=== PATIENT | male | born 1945 | race Caucasian/White ===

== ENCOUNTER 2022-07-12 21:00 | Inpatient (IN) | payer BC, OTHER ==
[~2022-07-12] VITALS: Ht 190.5 cm; Wt 103.9 kg
[2022-07-12] MEDS ORDERED: IV NS 0.9% 1,000 ML BAG IV ONE (23:00)
[2022-07-12] MEDS ORDERED: PIPERACILLIN /TAZOBACTAM 3.375 G in IV D5W 50 ML IV ONE (23:00)
[2022-07-12] MEDS ORDERED: VANCOMYCIN 1 GM in IV D5W 250 ML IV ONE (23:00)
--- NOTE | 2022-07-12 23:19 | NUR ---
20G IV STARTED ON R AC. BLOOD COLLECTED SENT TO LAB
[2022-07-12] MEDS ORDERED: PIPERACI/TAZO 3.375GM/D5W 50ML PB IV ONE (23:21)
--- NOTE | 2022-07-12 23:23 | NUR ---
X-RAY AT BEDSIDE
[2022-07-12 23:30] LABS: BASOPHILS % (AUTO) 0.3 % (0.0-2.0); EOSINOPHILS % (AUTO) 1.8 % (0.0-6.0); HEMATOCRIT 43 % (39-51); HEMOGLOBIN 13.9 g/dL (13.5-17.5); LYMPHOCYTES # (AUTO) 0.8 K/uL (0.8-4.8); LYMPHOCYTES % (AUTO) 11.5 % (20.0-44.0); MEAN CORPUSCULAR HGB CONC 32 g/dl (31.0-36.0); MEAN CORPUSCULAR VOLUME 84 fL (80-96); MONOCYTES # (AUTO) 0.8 K/uL (0.1-1.30); MONOCYTES % (AUTO) 11.2 % (2.0-12.0); NEUTROPHILS # (AUTO) 5.3 K/uL (1.8-8.9); NEUTROPHILS % (AUTO) 75.2 % (43.0-81.0); PLATELET COUNT (AUTO) 273 K/uL (150-450); RED BLOOD CELL COUNT(AUTO) 5.14 MIL/uL (4.5-6.0)
[2022-07-12 23:44] LABS: ALANINE AMINOTRANSFERASE 19 U/L (12-78); ALBUMIN 3.4 g/dL (3.4-5.0); ALKALINE PHOSPHATASE 116 U/L (46-116); ASPARTATE AMINOTRANSFERASE 10 U/L (15-37); BILIRUBIN,DIRECT 0.1 mg/dL (0.0-0.2); BILIRUBIN,TOTAL 0.4 mg/dL (0.2-1.0); CALCIUM, SERUM 9.1 mg/dL (8.5-10.1); CARBON DIOXIDE 24 mmol/L (21-32); CHLORIDE 91 mmol/L (98-107); CREATININE 5.6 mg/dL (0.6-1.3); GLUCOSE 254 mg/dL (74-106); SODIUM SERUM 129 mmol/L (136-145)
--- NOTE | 2022-07-12 23:55 | NUR ---
COVID ANTIGEN COLLECTED SENT TO [facility]
[2022-07-12 23:56] LABS: POTASSIUM 6.9 mmol/L (3.5-5.1); UREA NITROGEN, BLOOD 159 mg/dL (7-18)
--- NOTE | 2022-07-12 23:58 | NUR ---
LAB REPORTED POTASSIUM 6.[address] ALEMAN AWARE[address]
[2022-07-13] MEDS ORDERED: SODIUM BICARBONATE SYR 50 MEQ/50 ML DISP.SYRIN IV ONE
[2022-07-13] MEDS ORDERED: SODIUM POLYSTYRENE SULFONATE 15 G/60 ML BOTTLE PO ONE
[2022-07-13] MEDS ORDERED: VANCOMYCIN 1 GM /D5W 250 ML PB IV ONE (00:01)
[2022-07-13] MEDS ORDERED: Calcium Gluconate 1GM/10ML 4.65 MEQ in IV NS 0.9% 100 ML IV ONE (00:30)
[2022-07-13] MEDS ORDERED: Calcium Gluconate 0.465 MEQ/ML VIAL IV ONE (00:32)
[2022-07-13] MEDS ORDERED: DEXTROSE 50%-WATER 50 ML DISP.SYRIN IV PRN (01:30)
[2022-07-13] MEDS ORDERED: Z GUARD REMEDY 4 OZ OINT TP PRN (01:30)
[2022-07-13] MEDS ORDERED: MAG HYDROX/AL HYDROX/SIMETH 30 ML UDC PO PRN (01:30)
[2022-07-13] MEDS ORDERED: ACETAMINOPHEN 325 MG TABLET PO PRN (01:30)
[2022-07-13] MEDS ORDERED: MAGNESIUM HYDROXIDE 30 ML UDC PO PRN (01:30)
--- NOTE | 2022-07-13 02:41 | NUR ---
PER US TECH, -NEGATIVE FOR DVT
[2022-07-13] MEDS ORDERED: IV NS 0.9% 1,000 ML IV ONE (05:00)
[2022-07-13 05:49] LABS: BASOPHILS % (AUTO) 0.1 % (0.0-2.0); HEMATOCRIT 42 % (39-51); HEMOGLOBIN 13.4 g/dL (13.5-17.5); LYMPHOCYTES # (AUTO) 0.6 K/uL (0.8-4.8); LYMPHOCYTES % (AUTO) 7.3 % (20.0-44.0); MEAN CORPUSCULAR HGB CONC 32 g/dl (31.0-36.0); MEAN CORPUSCULAR VOLUME 84 fL (80-96); MONOCYTES # (AUTO) 0.7 K/uL (0.1-1.30); MONOCYTES % (AUTO) 8.7 % (2.0-12.0); NEUTROPHILS # (AUTO) 6.9 K/uL (1.8-8.9); NEUTROPHILS % (AUTO) 82.9 % (43.0-81.0); PLATELET COUNT (AUTO) 250 K/uL (150-450); RED BLOOD CELL COUNT(AUTO) 5.04 MIL/uL (4.5-6.0); WHITE BLOOD COUNT (AUTO) 8.3 K/uL (4.3-11.0)
[2022-07-13 06:13] LABS: CALCIUM, SERUM 8.9 mg/dL (8.5-10.1); CARBON DIOXIDE 22 mmol/L (21-32); CHLORIDE 93 mmol/L (98-107); CHOLESTEROL 105 mg/dL (<200); CREATININE 5.1 mg/dL (0.6-1.3); GLUCOSE 150 mg/dL (74-106); HDL CHOLESTEROL 47 mg/dL (40-60); LDL 45 mg/dL (0-99); MAGNESIUM 3.3 mg/dL (1.8-2.4); SODIUM SERUM 129 mmol/L (136-145); THYROID STIMULATING HORMONE 1.393 uIU/mL (0.358-3.74); TRIGLYCERIDES 134 mg/dL (30-150)
[2022-07-13 06:30] LABS: PHOSPHORUS 8.4 mg/dL (2.5-4.9); POTASSIUM 6.5 mmol/L (3.5-5.1); UREA NITROGEN, BLOOD 148 mg/dL (7-18)
--- NOTE | 2022-07-13 06:32 | NUR ---
CRITICAL LABS POTASSIUM 6.5 BUN 148 PHOSPHORUS 8.4
--- NOTE | 2022-07-13 07:09 | NUR ---
URINE COLLECTED AND SENT TO LAB
--- NOTE | 2022-07-13 07:10 | NUR ---
RECEIVED PT FROM MAIKEL SIMPSON PT AWAKE AND FALLOW COMMAND
[2022-07-13] MEDS ORDERED: DEXTROSE 50%-WATER 50 ML DISP.SYRIN IVP ONE (07:30)
[2022-07-13] MEDS ORDERED: INSULIN REGULAR, HUMAN 100 UNIT/ML 10 ML VIAL IV ONE ×2 (07:30)
--- NOTE | 2022-07-13 08:25 | NUR ---
ACCU CKECK DONE 183MMHG
[2022-07-13] MEDS: BLOOD SUGAR DIAGNOSTIC 1 EACH STRIP IN SCH ×4 (08:26→21:14)
--- NOTE | 2022-07-13 08:34 | NUR ---
WATING FOR MONITER BED
--- NOTE | 2022-07-13 09:00 | NUR ---
BOTH LOWER EXTRAMITY SWALLEN AND DRY WITH OZINNGING
--- NOTE | 2022-07-13 09:34 | NUR ---
GOT BED 115-2 ADMITTING INFORMED.
--- NOTE | 2022-07-13 09:48 | NUR ---
HAND OFF MATTHEW RN TO ROOM 115-2 VIA MANJIT GRESHAM VS NO SOB
--- NOTE | 2022-07-13 09:55 | NUR ---
UA SENT TO LAB
[2022-07-13 10:00] VITALS: BP 125/76
--- NOTE | 2022-07-13 10:00 | NUR ---
TOILET AND LAUNDRY SOAP SUPERVISOR NOTE PATIENT RECEIVED IN BED , BROUGHT FROM ER DUE TO PATIENT HAS BLE BELLOW THE KNEES MULTIPLE WOUNDS AND REDNESS.ALSO PATIENT HAS ELEVATED BUN 151 .PATIENT IS W/C BOUND , HAS IV ACCESS ON THE R FOREARM 22 G , LEFT WRIST 22 G .NS RUNNING AT 125 ML/HR . WOUND CONSULT ORDERED . BED IS AT LOWEST POSITION , CALL LIGHT WITHIN REACH WILL CONTINUE TO MONITOR
[2022-07-13] MEDS: PANTOPRAZOLE 40 MG VIAL IV SCH (10:47)
[2022-07-13] MEDS: HEPARIN SODIUM, PORCINE 5000 UNITS/1 ML VIAL SQ SCH ×2 (10:48→21:14)
[2022-07-13] MEDS: INSULIN REGULAR, HUMAN 100 UNIT/ML 3 ML VIAL SQ PRN ×3 (12:04→22:22)
[2022-07-13] MEDS: HYDROCODONE/APAP 5/325MG TABLET PO PRN (12:22)
[2022-07-13 12:23] LABS: BILIRUBIN,URINE NEGATIVE (NEGATIVE); COLOR,URINE YELLOW (YELLOW); LEUKOCYTE ESTERASE ,URINE 3+ (NEGATIVE); NITRITE, URINE NEGATIVE (NEGATIVE); PROTEIN,URINE 2+ mg/dl (NEGATIVE); UGLUCOSE 1+ mg/dL (NEGATIVE); UROBILINOGEN,URINE 0.2 EU/dL (0.2)
[2022-07-13 12:29] LABS: BACTERIA,URINE Few /HPF (None Seen); SQUAMOUS EPITHELIAL CELL,UR Few /HPF (None Seen); WBC,URINE 21-50 /HPF (0-3)
[2022-07-13] MEDS ORDERED: SODIUM POLYSTYRENE SULF. PWD 15 GM UDC PO ONE (13:00)
[2022-07-13] MEDS ORDERED: PIPERACILLIN /TAZOBACTAM 2.25 G in IV D5W 50 ML IV SCH (13:00)
[2022-07-13] MEDS: IV NS 0.9% 1,000 ML IV SCH ×2 (13:01→21:09)
[2022-07-13 13:34] LABS: CALCIUM, SERUM 8.5 mg/dL (8.5-10.1); CARBON DIOXIDE 21 mmol/L (21-32); CHLORIDE 96 mmol/L (98-107); CREATININE 5.2 mg/dL (0.6-1.3); GLUCOSE 343 mg/dL (74-106); POTASSIUM 5.7 mmol/L (3.5-5.1); SODIUM SERUM 131 mmol/L (136-145)
[2022-07-13 14:00] VITALS: BP 135/76
[2022-07-13 14:29] LABS: UREA NITROGEN, BLOOD 151 mg/dL (7-18)
[2022-07-13 18:03] VITALS: BP 145/76
--- NOTE | 2022-07-13 18:34 | NUR ---
RN CLOSING NOTE PATIENT RECEIVED IN BED , HAS BLE BELLOW THE KNEES MULTIPLE WOUNDS AND REDNESS. IV ACCESS ON THE R FOREARM 22 G , LEFT WRIST 22 G .NS RUNNING AT 125 ML/HR . PATIENT IS ON 02 4L VIA N.C BREATHING NON LABORED , O2 SAT 98 % . BED IS AT LOWEST POSITION , CALL LIGHT WITHIN REACH WILL ENDORSE TALENT ACQUISITION SOURCER NURSE TO FALLOW POC
[2022-07-13 18:55] LABS: HEMOGLOBIN 11.3 g/dL (13.5-17.5)
--- NOTE | 2022-07-13 19:30 | NUR ---
SILVIA RN OPENING NOTES RECEIVED PATIENT IN BED. ALERT AND ORIENTED X4. ON O2 VIA NC AT 2LPM TOLERATING ABOVE 95%, NO S/S OF SOB OR RESPIRATORY DISTRESS. ON TELE MONITOR SR. IV ACCESS AT LFA 20G WITH NS RUNNING AT 125ML/HR, L HAND #22G AND RFA #20G INTACT AND PATENT, CONDOM CATHETER IN PLACE. NOTED WITH BLE WOUND, ALL SAFETY PRECAUTIONS IN PLACE WITH BED IN LOWEST LOCKED POSITION, SIDE RAILS UP X4, BED ALARM ON, AND CALL LIGHT AND TABLE WITHIN REACH. WILL CONTINUE TO MONITOR THROUGHOUT THE SHIFT.
[2022-07-13] MEDS: MORPHINE SULFATE INJ 2 MG/ML DISP.SYRIN IV PRN (21:10)
[2022-07-13 22:00] VITALS: BP 118/53
[2022-07-13] MEDS ORDERED: MEROPENEM 500 MG in IV NS 0.9% 50 ML IV ONE (22:00)
[2022-07-13] MEDS ORDERED: MEROPENEM 500MG/NS 50 ML PB IV ONE (22:18)
[2022-07-14] MEDS: HYDROCODONE/APAP 5/325MG TABLET PO PRN ×2 (02:38→18:33)
[2022-07-14 04:00] VITALS: BP 103/62
[2022-07-14] MEDS: IV NS 0.9% 1,000 ML IV SCH ×3 (05:20→21:19)
--- NOTE | 2022-07-14 06:41 | NUR ---
SILVIA RN CLOSING NOTES PATIENT REMAINS IN BED ASLEEP BUT EASILY AROUSABLE TO TOUCH AND VOICE. ALERT AND ORIENTED X4. ON O2 VIA NC AT 2LPM TOLERATING ABOVE 95%, NO S/S OF SOB OR RESPIRATORY DISTRESS. ON TELE MONITOR SR. IV ACCESS AT LFA 20G WITH NS RUNNING AT 125ML/HR, L HAND #22G AND RFA #20G INTACT AND PATENT, CONDOM CATHETER IN PLACE. NOTED WITH BLE WOUND, KEPT DRY AND CLEAN, ALL SAFETY PRECAUTIONS IN PLACE WITH BED IN LOWEST LOCKED POSITION, SIDE RAILS UP X4, BED ALARM ON, AND CALL LIGHT AND TABLE WITHIN REACH. ALL DUE MEDS GIVEN, WILL ENDORSE TO AM SHIFT NURSE FOR CONTINUITY OF CARE.
[2022-07-14 06:50] LABS: BASOPHILS % (AUTO) 0.3 % (0.0-2.0); EOSINOPHILS % (AUTO) 2.2 % (0.0-6.0); HEMATOCRIT 35 % (39-51); HEMOGLOBIN 10.9 g/dL (13.5-17.5); LYMPHOCYTES # (AUTO) 0.5 K/uL (0.8-4.8); LYMPHOCYTES % (AUTO) 8.6 % (20.0-44.0); MEAN CORPUSCULAR HGB CONC 32 g/dl (31.0-36.0); MEAN CORPUSCULAR VOLUME 85 fL (80-96); MONOCYTES # (AUTO) 0.7 K/uL (0.1-1.30); MONOCYTES % (AUTO) 12.4 % (2.0-12.0); NEUTROPHILS # (AUTO) 4.2 K/uL (1.8-8.9); NEUTROPHILS % (AUTO) 76.5 % (43.0-81.0); PLATELET COUNT (AUTO) 170 K/uL (150-450); RED BLOOD CELL COUNT(AUTO) 4.07 MIL/uL (4.5-6.0); WHITE BLOOD COUNT (AUTO) 5.6 K/uL (4.3-11.0)
[2022-07-14 07:06] LABS: CALCIUM, SERUM 7.7 mg/dL (8.5-10.1); CARBON DIOXIDE 23 mmol/L (21-32); CHLORIDE 99 mmol/L (98-107); CREATININE 4.3 mg/dL (0.6-1.3); GLUCOSE 322 mg/dL (74-106); MAGNESIUM 2.8 mg/dL (1.8-2.4); PHOSPHORUS 7.3 mg/dL (2.5-4.9); POTASSIUM 3.7 mmol/L (3.5-5.1); SODIUM SERUM 134 mmol/L (136-145)
[2022-07-14 07:27] LABS: UREA NITROGEN, BLOOD 128 mg/dL (7-18)
--- NOTE | 2022-07-14 07:27 | NUR ---
SILVIA RN OPENING NOTE RECEIVED PATIENT REMAINS IN BED ALERT AND ORIENTED X4. ON O2 VIA NC AT 2LPM TOLERATING ABOVE 95%, NO S/S OF SOB OR RESPIRATORY DISTRESS AT THIS TIME. ON TELE MONITOR SR 90. IV ACCESS AT LFA 20G WITH NS RUNNING AT 125ML/HR, L HAND #22G AND RFA #20G INTACT AND PATENT, CONDOM CATHETER IN PLACE YELLOW COLOR OUTPUT. NOTED WITH BLE WOUND, KEPT DRY AND CLEAN, ALL SAFETY PRECAUTIONS IN PLACE WITH BED IN LOWEST LOCKED POSITION, SIDE RAILS UP X4, BED ALARM ON, AND CALL LIGHT AND TABLE WITHIN REACH.
[2022-07-14] MEDS: BLOOD SUGAR DIAGNOSTIC 1 EACH STRIP IN SCH ×4 (07:31→21:10)
[2022-07-14] MEDS: INSULIN REGULAR, HUMAN 100 UNIT/ML 3 ML VIAL SQ PRN ×4 (07:41→21:11)
[2022-07-14 08:00] VITALS: BP 108/66
--- NOTE | 2022-07-14 08:00 | NUR ---
rn note notified parboiler geremias moran that bun is 128 and bun trending down
[2022-07-14] MEDS: PANTOPRAZOLE 40 MG VIAL IV SCH (08:22)
[2022-07-14] MEDS ORDERED: PANTOPRAZOLE 40 MG/PACK PACK GT SCH (09:00)
--- NOTE | 2022-07-14 09:05 | NUR ---
rn note protonix pack not given, gave protonix iv earlier
[2022-07-14] MEDS: HEPARIN SODIUM, PORCINE 5000 UNITS/1 ML VIAL SQ SCH ×2 (10:44→21:20)
[2022-07-14 12:00] VITALS: BP 103/67
[2022-07-14 16:00] VITALS: BP 100/57
[2022-07-14] MEDS ORDERED: VANCOMYCIN 1 GM in IV D5W 250 ML IV SCH (18:00)
--- NOTE | 2022-07-14 19:15 | NUR ---
GUT SORTER CLOSING NOTE PATIENT REMAINS IN BED ALERT AND ORIENTED X4. ON O2 VIA NC AT 2LPM TOLERATING AT 93%, NO S/S OF SOB OR RESPIRATORY DISTRESS AT THIS TIME. ON TELE MONITOR SR 83. IV ACCESS AT LFA 20G WITH NS RUNNING AT 125ML/HR, L HAND #22G AND RFA #20G INTACT AND PATENT, CONDOM CATHETER IN PLACE YELLOW COLOR OUTPUT. NOTED WITH BLE WOUND, KEPT DRY AND CLEAN, WOUND CARE TREATMENT DONE. ALL SAFETY PRECAUTIONS IN PLACE WITH BED IN LOWEST LOCKED POSITION, SIDE RAILS UP X4, BED ALARM ON, AND CALL LIGHT AND TABLE WITHIN REACH. ENDORSED TO PEST CONTROL SERVICE SALES AGENT RN FOR CONTUITY OF CARE
--- NOTE | 2022-07-14 19:30 | NUR ---
AIRCRAFT MECHANIC ELECTRICAL AND RADIO OPENING NOTE PATIENT RECEIVED AWAKE A/O X4, NO SOB NO DISTRESS NOTED, ON NC FLOWING 2LPM, ON EXTERNAL MACHINE FINISHER, SR HR 85BPM, PATIENT USING CONDUMN CATH, FLOWING CLEAR YELLOW URINE, DENIES PAIN AT THIS TIME, ALL SAFETY MEASURES IN PLACE, CALL LIGHT WITHIN REACH, WILL CONTINUE PLAN OF CARE
[2022-07-14 20:27] VITALS: BP 112/55
[2022-07-14] MEDS ORDERED: MEROPENEM 500 MG in IV NS 0.9% 50 ML IV SCH (22:00)
[2022-07-15 01:07] VITALS: BP 123/59
[2022-07-15 05:09] VITALS: BP 127/45
[2022-07-15] MEDS: IV NS 0.9% 1,000 ML IV SCH ×2 (05:17→12:03)
[2022-07-15 06:01] LABS: BASOPHILS % (AUTO) 0.2 % (0.0-2.0); EOSINOPHILS % (AUTO) 2.8 % (0.0-6.0); HEMATOCRIT 36 % (39-51); HEMOGLOBIN 11.4 g/dL (13.5-17.5); LYMPHOCYTES # (AUTO) 0.3 K/uL (0.8-4.8); LYMPHOCYTES % (AUTO) 6.8 % (20.0-44.0); MEAN CORPUSCULAR HGB CONC 32 g/dl (31.0-36.0); MEAN CORPUSCULAR VOLUME 84 fL (80-96); MONOCYTES # (AUTO) 0.7 K/uL (0.1-1.30); MONOCYTES % (AUTO) 14.3 % (2.0-12.0); NEUTROPHILS # (AUTO) 3.8 K/uL (1.8-8.9); NEUTROPHILS % (AUTO) 75.9 % (43.0-81.0); PLATELET COUNT (AUTO) 191 K/uL (150-450); RED BLOOD CELL COUNT(AUTO) 4.24 MIL/uL (4.5-6.0)
[2022-07-15 06:20] LABS: CALCIUM, SERUM 7.9 mg/dL (8.5-10.1); CARBON DIOXIDE 23 mmol/L (21-32); CHLORIDE 106 mmol/L (98-107); CREATININE 3.2 mg/dL (0.6-1.3); GLUCOSE 223 mg/dL (74-106); MAGNESIUM 2.8 mg/dL (1.8-2.4); PHOSPHORUS 4.7 mg/dL (2.5-4.9); POTASSIUM 3.6 mmol/L (3.5-5.1); SODIUM SERUM 139 mmol/L (136-145)
--- NOTE | 2022-07-15 06:28 | NUR ---
TELE TECHNICAL PUBLICATIONS MANAGER CLOSING NOTE PATIENT REMAINS IN BED ALERT AND ORIENTED X4. ON O2 VIA NC AT 2LPM TOLERATING AT 97%, NO S/S OF SOB OR RESPIRATORY DISTRESS AT THIS TIME. ON TELE MONITOR SR 81. IV ACCESS AT LFA 20G WITH NS RUNNING AT 125ML/HR, L HAND #22G AND RFA #20G INTACT AND PATENT, CONDOM CATHETER IN PLACE YELLOW COLOR OUTPUT. NOTED WITH BLE WOUND, KEPT DRY AND CLEAN, WOUND CARE TREATMENT DONE. ALL SAFETY PRECAUTIONS IN PLACE WITH BED IN LOWEST LOCKED POSITION, SIDE RAILS UP X4, BED ALARM ON, AND CALL LIGHT AND TABLE WITHIN REACH. ENDORSED TO AM RN FOR CONTUITY OF CARE
[2022-07-15 06:36] LABS: UREA NITROGEN, BLOOD 98 mg/dL (7-18)
--- NOTE | 2022-07-15 07:10 | NUR ---
SCHOOL COORDINATOR OPENING NOTE RECEIVED PATIENT REMAINS IN BED ALERT AND ORIENTED X4. ON O2 VIA NC AT 2LPM TOLERATING ABOVE 92%, NO S/S OF SOB OR RESPIRATORY DISTRESS AT THIS TIME. ON TELE MONITOR CURRENLTY 1ST DEGREE AV BLOCK WITH BBB SR 79. IV ACCESS AT LFA 20G WITH NS RUNNING AT 125ML/HR, L HAND #22G AND RFA #20G INTACT AND PATENT, CONDOM CATHETER IN PLACE YELLOW COLOR OUTPUT. NOTED WITH BLE WOUND, KEPT DRY AND CLEAN, WOUND CARE TREATMENT DONE. ALL SAFETY PRECAUTIONS IN PLACE WITH BED IN LOWEST LOCKED POSITION, SIDE RAILS UP X4, BED ALARM ON
[2022-07-15] MEDS: BLOOD SUGAR DIAGNOSTIC 1 EACH STRIP IN SCH ×4 (07:35→22:03)
[2022-07-15 08:00] VITALS: BP 114/59
[2022-07-15] MEDS: PANTOPRAZOLE 40 MG TABLET.DR PO SCH (08:02)
[2022-07-15] MEDS: HEPARIN SODIUM, PORCINE 5000 UNITS/1 ML VIAL SQ SCH ×2 (08:05→22:05)
[2022-07-15] MEDS: INSULIN REGULAR, HUMAN 100 UNIT/ML 3 ML VIAL SQ PRN ×4 (08:06→22:08)
[2022-07-15] MEDS: HYDROCODONE/APAP 5/325MG TABLET PO PRN ×2 (08:16→18:04)
[2022-07-15] MEDS: MEROPENEM 500 MG in IV NS 0.9% 50 ML IV SCH ×2 (09:27→22:02)
[2022-07-15] MEDS ORDERED: ALBUTEROL HALF STRENGTH 1.25 MG/3 ML VIAL.NEB NEB PRN (11:30)
[2022-07-15 12:00] VITALS: BP 108/57
[2022-07-15] MEDS: MORPHINE SULFATE INJ 2 MG/ML DISP.SYRIN IV PRN ×2 (12:16→22:03)
[2022-07-15 16:00] VITALS: BP 139/40
[2022-07-15] MEDS: ALBUTEROL HALF STRENGTH 1.25 MG/3 ML VIAL.NEB NEB SCH ×2 (16:00→19:45)
--- NOTE | 2022-07-15 19:10 | NUR ---
MEDICAL LAB TECHNICIAN CLOSING NOTE PATIENT REMAINS IN BED ALERT AND ORIENTED X4. ON O2 VIA NC AT 2LPM TOLERATING AT 99%, NO S/S OF SOB OR RESPIRATORY DISTRESS AT THIS TIME. ON TELE MONITOR CURRENTLY 1ST DEGREE AV BLOCK WITH BBB SR 86. IV ACCESS AT LFA 20G WITH NS RUNNING AT 125ML/HR, L HAND #22G AND RFA #20G INTACT AND PATENT, CONDOM CATHETER IN PLACE YELLOW COLOR OUTPUT. NOTED WITH BLE WOUND, KEPT DRY AND CLEAN, WOUND CARE TREATMENT DONE. ALL SAFETY PRECAUTIONS IN PLACE WITH BED IN LOWEST LOCKED POSITION, SIDE RAILS UP X4, BED ALARM ON.ENDORSED TO SUSPENSION CORD TIER RN FOR CONTUITY OF CARE
--- NOTE | 2022-07-15 19:30 | NUR ---
CAMPUS RECRUITER OPENING NOTES RECEIVED PATIENT IN BED. ALERT AND ORIENTED X4. ON O2 VIA NC AT 2LPM TOLERATING ABOVE 95%, NO S/S OF SOB OR RESPIRATORY DISTRESS. ON TELE MONITOR SR. IV ACCESS AT LFA 20G, L HAND #22G AND RFA #20G INTACT AND PATENT RUNNING NS AT 90 ML/HR, CONDOM CATHETER IN PLACE. NOTED WITH BLE WOUND, ALL SAFETY PRECAUTIONS IN PLACE WITH BED IN LOWEST LOCKED POSITION, SIDE RAILS UP X4, BED ALARM ON, AND CALL LIGHT AND TABLE WITHIN REACH. WILL CONTINUE TO MONITOR THROUGHOUT THE SHIFT.
[2022-07-15] MEDS: IPRATROPIUM NEB FS 0.5 MG/2.5 ML AMPUL.NEB NEB SCH (19:45)
[2022-07-15 20:00] VITALS: BP 133/76
[2022-07-16] VITALS: BP 129/74
[2022-07-16] MEDS: IV NS 0.9% 1,000 ML IV SCH ×2 (00:25→18:12)
[2022-07-16] MEDS: ALBUTEROL HALF STRENGTH 1.25 MG/3 ML VIAL.NEB NEB SCH ×4 (02:08→19:42)
[2022-07-16] MEDS: IPRATROPIUM NEB FS 0.5 MG/2.5 ML AMPUL.NEB NEB SCH ×4 (02:08→19:42)
[2022-07-16 04:00] VITALS: BP 141/74
[2022-07-16] MEDS: HYDROCODONE/APAP 5/325MG TABLET PO PRN (05:38)
--- NOTE | 2022-07-16 06:39 | NUR ---
RN NOTE SPOKE TO JUDIE MCKNIGHT ([phone]). UPDATES GIVEN IN REGARDS TO PATIENT STATUS AND REQUESTED TO BE TRANSFERRED TO [facility]. PER JUDIE HAVE CLASSROOM MONITOR CALL HER IN AM TO FACILITATE TRANSFER TO OTHER FACILITY. WILL ENDORSE TO AM SHIFT.
--- NOTE | 2022-07-16 06:49 | NUR ---
INSPECTOR BALANCE TRUING CLOSING NOTES PATIENT REMAINS IN BED. ALERT AND ORIENTED X4. ON O2 VIA NC AT 2LPM TOLERATING ABOVE 95%, NO S/S OF SOB OR RESPIRATORY DISTRESS. ON TELE MONITOR SR AT 83. IV ACCESS AT LFA 20G, L HAND #22G AND RFA #20G INTACT AND PATENT RUNNING NS AT 75 ML/HR. NOTED WITH BLE WOUND, WOUND CARE DONE PER PROTOCOL, ALL SAFETY PRECAUTIONS IN PLACE WITH BED IN LOWEST LOCKED POSITION, SIDE RAILS UP X4, BED ALARM ON, AND CALL LIGHT AND TABLE WITHIN REACH. ALL DUE MEDS GIVEN, KEPT DRY AND CLEAN, WILL ENDORSE TO AM SHIFT NURSE FOR CONTINUITY OF CARE.
[2022-07-16 06:53] LABS: BASOPHILS % (AUTO) 0.3 % (0.0-2.0); EOSINOPHILS % (AUTO) 3.6 % (0.0-6.0); HEMATOCRIT 37 % (39-51); HEMOGLOBIN 11.5 g/dL (13.5-17.5); LYMPHOCYTES # (AUTO) 0.4 K/uL (0.8-4.8); LYMPHOCYTES % (AUTO) 7.9 % (20.0-44.0); MEAN CORPUSCULAR HGB CONC 31 g/dl (31.0-36.0); MEAN CORPUSCULAR VOLUME 86 fL (80-96); MONOCYTES # (AUTO) 0.6 K/uL (0.1-1.30); MONOCYTES % (AUTO) 12.9 % (2.0-12.0); NEUTROPHILS # (AUTO) 3.6 K/uL (1.8-8.9); NEUTROPHILS % (AUTO) 75.3 % (43.0-81.0); PLATELET COUNT (AUTO) 202 K/uL (150-450); RED BLOOD CELL COUNT(AUTO) 4.29 MIL/uL (4.5-6.0); WHITE BLOOD COUNT (AUTO) 4.7 K/uL (4.3-11.0)
--- NOTE | 2022-07-16 07:00 | NUR ---
DRY CAN TENDER OPENING NOTES PATIENT REMAINS IN BED, ASLEEP BUT AROUSABLE. ON O2 VIA NC AT 2LPM TOLERATING ABOVE 95%, NO S/S OF SOB OR RESPIRATORY DISTRESS. ON TELE MONITOR SR AT THIS TIME. IV ACCESS AT LFA 20G, L HAND #22G AND RFA #20G INTACT AND PATENT RUNNING NS AT 75 ML/HR. NOTED WITH BLE WOUND DRESSING INTACT, ALL SAFETY PRECAUTIONS IN PLACE WITH BED IN LOWEST LOCKED POSITION, SIDE RAILS UP, BED ALARM ON, AND CALL LIGHT AND TABLE WITHIN REACH. WILL CONTINUE PLAN OF CARE AND ANTICIPATE NEEDS.
[2022-07-16 07:07] LABS: CALCIUM, SERUM 8.4 mg/dL (8.5-10.1); CARBON DIOXIDE 23 mmol/L (21-32); CHLORIDE 111 mmol/L (98-107); CREATININE 2.5 mg/dL (0.6-1.3); GLUCOSE 224 mg/dL (74-106); MAGNESIUM 2.6 mg/dL (1.8-2.4); PHOSPHORUS 3.6 mg/dL (2.5-4.9); POTASSIUM 4.5 mmol/L (3.5-5.1); SODIUM SERUM 143 mmol/L (136-145); UREA NITROGEN, BLOOD 73 mg/dL (7-18)
[2022-07-16] MEDS: BLOOD SUGAR DIAGNOSTIC 1 EACH STRIP IN SCH ×4 (07:55→22:14)
[2022-07-16 08:00] VITALS: BP 135/66
[2022-07-16] MEDS: PANTOPRAZOLE 40 MG TABLET.DR PO SCH (08:25)
[2022-07-16] MEDS: MEROPENEM 500 MG in IV NS 0.9% 50 ML IV SCH (08:25)
[2022-07-16] MEDS: HEPARIN SODIUM, PORCINE 5000 UNITS/1 ML VIAL SQ SCH ×2 (08:26→20:33)
[2022-07-16] MEDS: INSULIN REGULAR, HUMAN 100 UNIT/ML 3 ML VIAL SQ PRN ×4 (08:30→22:41)
[2022-07-16 12:00] VITALS: BP 140/77
[2022-07-16 16:00] VITALS: BP 116/68
[2022-07-16] MEDS: MORPHINE SULFATE INJ 2 MG/ML DISP.SYRIN IV PRN (16:21)
[2022-07-16] MEDS: VANCOMYCIN 1 GM in IV D5W 250ml IV SCH (18:13)
--- NOTE | 2022-07-16 18:47 | NUR ---
BILLING TYPIST CLOSING NOTES PATIENT REMAINS IN BED, ALERT ANDORIENTED TIMES 4. ON O2 VIA NC AT 2LPM TOLERATING ABOVE 95%, NO S/S OF SOB OR RESPIRATORY DISTRESS. ON TELE MONITOR SR AT THIS TIME. IV ACCESS AT LFA 20G, L HAND #22G AND RFA #20G INTACT AND PATENT RUNNING NS AT 50 ML/HR. NOTED WITH BLE WOUND DRESSING INTACT, ALL SAFETY PRECAUTIONS IN PLACE WITH BED IN LOWEST LOCKED POSITION, SIDE RAILS UP, BED ALARM ON, AND CALL LIGHT AND TABLE WITHIN REACH. WILL ENDORSE TO NIGHTSHIFT RN REY FOR CONTINUATION OF CARE.
--- NOTE | 2022-07-16 19:10 | NUR ---
RN OPENING NOTES RECEIVED PATIENT ON BED, AWAKE, ALERT/ ORIENTED X 4 ON NASAL CANULA @ 3LPM SATING AT 100%. NO SOB NOTED. AFEBRILE, NO S/S OF DISTRESS NOTED. NOTED WITH RFA #20, LFA #20 AND RIGHT HAND #20 PERIPHERAL LINE, FLUSHED WITH NS, NO S/S OF INFILTRATION NOTED, RUNNING WITH NS @ 50 ML/HR. ALL SAFETY PRECAUTION PROVIDED. BED IN LOWEST POSITION, LOCKED. CALL LIGHT WITH IN REACH.
[2022-07-16 20:00] VITALS: BP 133/67
[2022-07-16] MEDS: MEROPENEM 1 G in IV NS 0.9% 100 ML IV SCH (20:38)
[2022-07-17] VITALS: BP 146/80
[2022-07-17] MEDS: ALBUTEROL HALF STRENGTH 1.25 MG/3 ML VIAL.NEB NEB SCH ×4 (01:49→19:44)
[2022-07-17] MEDS: IPRATROPIUM NEB FS 0.5 MG/2.5 ML AMPUL.NEB NEB SCH ×4 (01:49→19:44)
[2022-07-17 04:00] VITALS: BP 146/81
[2022-07-17 05:45] LABS: BASOPHILS % (AUTO) 0.3 % (0.0-2.0); EOSINOPHILS % (AUTO) 5.3 % (0.0-6.0); HEMATOCRIT 36 % (39-51); HEMOGLOBIN 11.5 g/dL (13.5-17.5); LYMPHOCYTES # (AUTO) 0.5 K/uL (0.8-4.8); LYMPHOCYTES % (AUTO) 9.3 % (20.0-44.0); MEAN CORPUSCULAR HGB CONC 32 g/dl (31.0-36.0); MEAN CORPUSCULAR VOLUME 85 fL (80-96); MONOCYTES # (AUTO) 0.7 K/uL (0.1-1.30); MONOCYTES % (AUTO) 13.7 % (2.0-12.0); NEUTROPHILS # (AUTO) 3.5 K/uL (1.8-8.9); NEUTROPHILS % (AUTO) 71.4 % (43.0-81.0); PLATELET COUNT (AUTO) 214 K/uL (150-450); RED BLOOD CELL COUNT(AUTO) 4.27 MIL/uL (4.5-6.0)
[2022-07-17 06:00] LABS: CALCIUM, SERUM 8.4 mg/dL (8.5-10.1); CARBON DIOXIDE 24 mmol/L (21-32); CHLORIDE 112 mmol/L (98-107); CREATININE 2.1 mg/dL (0.6-1.3); GLUCOSE 175 mg/dL (74-106); MAGNESIUM 2.2 mg/dL (1.8-2.4); PHOSPHORUS 2.6 mg/dL (2.5-4.9); POTASSIUM 4.4 mmol/L (3.5-5.1); SODIUM SERUM 145 mmol/L (136-145); UREA NITROGEN, BLOOD 54 mg/dL (7-18)
--- NOTE | 2022-07-17 07:21 | NUR ---
LAND RESOURCE SPECIALIST OPENING NOTES PATIENT RECEIVED IN BED, AWAKE. ALERT/ ORIENTED X 4 ON NASAL CANULA @ 3LPM WITH BREAHTHIN EVEN AND UNLABORED AND NO SOB OR RESPIRATORY DISTRESS. NOTED. IV ACCESS AT RFA #20 AND LFA #20 INTACT AND PATENT. RIGHT HAND #20 PERIPHERAL LINE INTACT AND PATENT, RUNNING NS @ 50 ML/HR. ALL SAFETY PRECAUTION PROVIDED. BED IN LOWEST POSITION, LOCKED. CALL LIGHT WITH IN REACH. WILL CONTINUE TO MONITOR.
[2022-07-17] MEDS: BLOOD SUGAR DIAGNOSTIC 1 EACH STRIP IN SCH ×4 (07:58→21:27)
[2022-07-17] MEDS: INSULIN REGULAR, HUMAN 100 UNIT/ML 3 ML VIAL SQ PRN ×4 (07:59→22:54)
[2022-07-17 08:00] VITALS: BP 135/87
[2022-07-17] MEDS: MEROPENEM 1 G in IV NS 0.9% 100 ML IV SCH ×2 (08:05→21:22)
[2022-07-17] MEDS: PANTOPRAZOLE 40 MG TABLET.DR PO SCH (08:05)
[2022-07-17] MEDS: HEPARIN SODIUM, PORCINE 5000 UNITS/1 ML VIAL SQ SCH ×2 (08:07→21:00)
[2022-07-17] MEDS: MORPHINE SULFATE INJ 2 MG/ML DISP.SYRIN IV PRN ×2 (08:18→21:31)
--- NOTE | 2022-07-17 09:03 | NUR ---
WOUND CARE CONSULT: PT PRESENTS WITH REDNESS, SWELLING AND WOUNDS TO BILATERAL LOWER LEGS AND FEET, PRESENT ON ADMISSION. DR VILLA CALLED FOR DPM CONSULT. DISCUSSED SKIN PROTECTION WITH NURSING STAFF. MD IN AGREEMENT WITH PLAN OF CARE.
[2022-07-17 12:00] VITALS: BP 132/77
[2022-07-17] MEDS: IV NS 0.9% 1,000 ML IV SCH (14:40)
[2022-07-17 16:00] VITALS: BP 140/79
[2022-07-17] MEDS: VANCOMYCIN 1 GM in IV D5W 250ml IV SCH (18:47)
--- NOTE | 2022-07-17 19:27 | NUR ---
ELECTRIC STOVE INSTALLER CLOSING NOTES PATIENT IN BED AWAKE AND WATCHING TV. ALERT/ ORIENTED X 4, CALM AND COOPERATIVE. ON NASAL CANULA @ 1LPM WITH BREATHING EVEN AND UNLABORED AND NO SOB OR RESPIRATORY DISTRESS. ON TELE MONITOR READING SR 85. IV ACCESS AT RFA #20 AND LFA #20, RIGHT HAND #20 PERIPHERAL LINE, INTACT AND PATENT. ALL DUE MEDS GIVEN AND PATIENT KEPT CLEAN AND COMFORTABLE. ALL SAFETY PRECAUTION PROVIDED. BED IN LOWEST POSITION, LOCKED. CALL LIGHT WITH IN REACH. WILL ENDORSE TO ONCOMING SHIFT FOR ZANA.
--- NOTE | 2022-07-17 19:30 | NUR ---
TRACE EVIDENCE TECHNICIAN OPENING NOTE RECEIVED PATIENT IN BED, AWAKE. PT ALERT/ ORIENTED X 4, ABLE TO VERBALIZE NEEDS. ON NASAL CANULA @ 1 LPM WITH BREATHING EVEN, AND UNLABORED. NO SOB OR RESPIRATORY DISTRESS NOTED. IV ACCESS TO RIGHT FA #20G, AND LEFT FA #20G INTACT AND PATENT. RIGHT HAND #20G PERIPHERAL LINE INTACT AND PATENT, RUNNING NS @ 50 ML/HR. ALL SAFETY PRECAUTION PROVIDED. BED LOCKED IN LOWEST POSITION. CALL LIGHT WITHIN REACH. SR UP X2. WILL CONTINUE TO MONITOR PT.
[2022-07-17 20:00] VITALS: BP 142/79
--- NOTE | 2022-07-17 21:30 | NUR ---
CURATOR OF PHOTOGRAPHY AND PRINTS NOTE PT C/O PAIN TO BILATERAL LOWER EXTREMITY. MORPHINE ADMINISTERED TO PT.
[2022-07-17] MEDS: ZOLPIDEM TARTRATE 5 MG TABLET PO PRN (23:40)
--- NOTE | 2022-07-17 23:40 | NUR ---
OCCUPATIONAL HYGIENIST NOTE PT REPORTS INSOMNIA. JIM ADMINISTERED TO PT.
[2022-07-18] VITALS: BP 127/73
[2022-07-18] MEDS: IPRATROPIUM NEB FS 0.5 MG/2.5 ML AMPUL.NEB NEB SCH ×4 (01:47→20:02)
[2022-07-18] MEDS: ALBUTEROL HALF STRENGTH 1.25 MG/3 ML VIAL.NEB NEB SCH ×4 (01:47→20:02)
[2022-07-18 04:00] VITALS: BP 130/76
[2022-07-18 06:07] LABS: BASOPHILS % (AUTO) 0.3 % (0.0-2.0); EOSINOPHILS % (AUTO) 6.6 % (0.0-6.0); HEMATOCRIT 36 % (39-51); HEMOGLOBIN 11.2 g/dL (13.5-17.5); LYMPHOCYTES # (AUTO) 0.7 K/uL (0.8-4.8); LYMPHOCYTES % (AUTO) 12.6 % (20.0-44.0); MEAN CORPUSCULAR HGB CONC 32 g/dl (31.0-36.0); MEAN CORPUSCULAR VOLUME 85 fL (80-96); MONOCYTES # (AUTO) 0.9 K/uL (0.1-1.30); MONOCYTES % (AUTO) 15.6 % (2.0-12.0); NEUTROPHILS # (AUTO) 3.6 K/uL (1.8-8.9); NEUTROPHILS % (AUTO) 64.9 % (43.0-81.0); PLATELET COUNT (AUTO) 197 K/uL (150-450); RED BLOOD CELL COUNT(AUTO) 4.19 MIL/uL (4.5-6.0); WHITE BLOOD COUNT (AUTO) 5.5 K/uL (4.3-11.0)
[2022-07-18 06:25] LABS: CALCIUM, SERUM 8.3 mg/dL (8.5-10.1); CARBON DIOXIDE 25 mmol/L (21-32); CHLORIDE 113 mmol/L (98-107); GLUCOSE 131 mg/dL (74-106); MAGNESIUM 2.1 mg/dL (1.8-2.4); PHOSPHORUS 2.3 mg/dL (2.5-4.9); POTASSIUM 4.5 mmol/L (3.5-5.1); SODIUM SERUM 145 mmol/L (136-145); UREA NITROGEN, BLOOD 43 mg/dL (7-18)
--- NOTE | 2022-07-18 07:00 | NUR ---
RN OPENING NOTE RECEIVED PATIENT IN BED, AWAKE, ALERT AND ORIENTED X 4, ABLE TO VERBALIZE NEEDS. ON NASAL CANULA @ 1 LPM WITH BREATHING EVEN, AND UNLABORED WITH NO SOB, RESPIRATORY DISTRESS OR PAIN NOTED. IV ACCESS ON LEFT FA #20G INTACT AND PATENT. ALL SAFETY PRECAUTION IN PLACE, BED IN LOWEST AND LOCKED POSITION. CALL LIGHT AND TABLE WITHIN REACH. SR UP X2. WILL CONTINUE TO MONITOR.
--- NOTE | 2022-07-18 07:40 | NUR ---
RN CLOSING NOTE LEFT PATIENT IN BED, AWAKE, ALERT AND ORIENTED X 4, ABLE TO VERBALIZE NEEDS. ON NASAL CANULA @ 1 LPM WITH BREATHING EVEN, AND UNLABORED WITH NO SOB, RESPIRATORY DISTRESS OR PAIN NOTED. IV ACCESS ON LEFT FA #20G INTACT AND PATENT. ALL SAFETY PRECAUTION IN PLACE, BED IN LOWEST AND LOCKED POSITION. CALL LIGHT AND TABLE WITHIN REACH. SR UP X2. WILL ENDORSE PT TO AM SHIFT NURSE FOR ZANA.
[2022-07-18 08:00] VITALS: BP 129/68
[2022-07-18] MEDS: BLOOD SUGAR DIAGNOSTIC 1 EACH STRIP IN SCH ×4 (08:10→20:47)
[2022-07-18] MEDS: MEROPENEM 1 G in IV NS 0.9% 100 ML IV SCH (08:32)
[2022-07-18] MEDS: PANTOPRAZOLE 40 MG TABLET.DR PO SCH (08:32)
[2022-07-18] MEDS: HEPARIN SODIUM, PORCINE 5000 UNITS/1 ML VIAL SQ SCH ×2 (08:36→20:46)
[2022-07-18] MEDS: FUROSEMIDE 40 MG TABLET PO SCH (09:34)
[2022-07-18] MEDS: LEVOFLOXACIN (250MG) 250 MG TABLET PO SCH (11:37)
[2022-07-18] MEDS: INSULIN REGULAR, HUMAN 100 UNIT/ML 3 ML VIAL SQ PRN ×3 (11:40→21:03)
[2022-07-18] MEDS: HYDROCODONE/APAP 5/325MG TABLET PO PRN ×2 (11:48→17:16)
[2022-07-18 12:00] VITALS: BP 127/66
--- NOTE | 2022-07-18 13:20 | NUR ---
RN NOTE PATIENT CURRENT IV ACCESS INFILTRATED, PATIENT REFUSING A NEW IV ACCESS, CHARGE NURSE AND DOCTOR KALYN IVY NOTIFIED. CO NEW ORDERS RECEIVED.
[2022-07-18 16:00] VITALS: BP 125/71
[2022-07-18] MEDS ORDERED: NEUTRA PHOS 1 POWD.PACKET PO ONE (16:00)
--- NOTE | 2022-07-18 19:01 | NUR ---
RN CLOSING NOTE PATIENT IN BED, AWAKE, ALERT AND ORIENTED X 4, ABLE TO VERBALIZE NEEDS. ON NASAL CANULA @ 1 LPM WITH BREATHING EVEN, AND UNLABORED WITH NO SOB, RESPIRATORY DISTRESS OR PAIN NOTED. NO IV ACCESS, PATIENT REFUSED, MD AND CHARGE NURSE AWARE. WOUND DEBRIDEMENT AND WOUND CARE PROVIDED, PATIENT WAS REPOSITIONED EVERY TWO HOURS. ALL SAFETY PRECAUTION IN PLACE, BED IN LOWEST AND LOCKED POSITION. CALL LIGHT AND TABLE WITHIN REACH. SR UP X2. REPORT GIVEN TO ACTIVITY THERAPY SPECIALIST NURSE FOR CONTINUING OF CARE
--- NOTE | 2022-07-18 19:30 | NUR ---
AIRLINE FLIGHT ATTENDANT OPENING NOTES RECEIVED PATIENT IN BED. ALERT AND ORIENTED X4. ON O2 VIA NC AT 1LPM TOLERATING ABOVE 95%, NO S/S OF SOB OR RESPIRATORY DISTRESS. ON TELE MONITOR SR. NO IV ACCESS AT THIS TIME, PER AM SHIFT NURSE AWARE. NOTED WITH BLE WOUND DRESSING C/D/I, ALL SAFETY PRECAUTIONS IN PLACE WITH BED IN LOWEST LOCKED POSITION, SIDE RAILS UP X4, BED ALARM ON, AND CALL LIGHT AND TABLE WITHIN REACH. WILL CONTINUE TO MONITOR THROUGHOUT THE SHIFT.
[2022-07-18 20:00] VITALS: BP 127/77
[2022-07-19] VITALS: BP 142/80
[2022-07-19] MEDS: ALBUTEROL HALF STRENGTH 1.25 MG/3 ML VIAL.NEB NEB SCH ×4 (00:59→19:42)
[2022-07-19] MEDS: IPRATROPIUM NEB FS 0.5 MG/2.5 ML AMPUL.NEB NEB SCH ×4 (00:59→19:42)
[2022-07-19 04:00] VITALS: BP 139/77
[2022-07-19] MEDS: HYDROCODONE/APAP 5/325MG TABLET PO PRN ×2 (06:02→21:58)
[2022-07-19] MEDS: MORPHINE SULFATE INJ 2 MG/ML DISP.SYRIN IV PRN ×2 (06:13→11:27)
[2022-07-19 06:17] LABS: BASOPHILS % (AUTO) 0.3 % (0.0-2.0); EOSINOPHILS % (AUTO) 6.9 % (0.0-6.0); HEMATOCRIT 38 % (39-51); HEMOGLOBIN 11.7 g/dL (13.5-17.5); LYMPHOCYTES # (AUTO) 0.8 K/uL (0.8-4.8); LYMPHOCYTES % (AUTO) 14.1 % (20.0-44.0); MEAN CORPUSCULAR HGB CONC 31 g/dl (31.0-36.0); MEAN CORPUSCULAR VOLUME 85 fL (80-96); MONOCYTES # (AUTO) 0.7 K/uL (0.1-1.30); MONOCYTES % (AUTO) 12.3 % (2.0-12.0); NEUTROPHILS # (AUTO) 3.6 K/uL (1.8-8.9); NEUTROPHILS % (AUTO) 66.4 % (43.0-81.0); PLATELET COUNT (AUTO) 201 K/uL (150-450); RED BLOOD CELL COUNT(AUTO) 4.47 MIL/uL (4.5-6.0); WHITE BLOOD COUNT (AUTO) 5.5 K/uL (4.3-11.0)
[2022-07-19 06:38] LABS: CALCIUM, SERUM 8.7 mg/dL (8.5-10.1); CARBON DIOXIDE 23 mmol/L (21-32); CHLORIDE 109 mmol/L (98-107); CREATININE 1.9 mg/dL (0.6-1.3); GLUCOSE 156 mg/dL (74-106); MAGNESIUM 1.9 mg/dL (1.8-2.4); PHOSPHORUS 2.8 mg/dL (2.5-4.9); POTASSIUM 4.3 mmol/L (3.5-5.1); SODIUM SERUM 139 mmol/L (136-145); UREA NITROGEN, BLOOD 42 mg/dL (7-18)
--- NOTE | 2022-07-19 06:45 | NUR ---
BUSINESS OBJECTS DEVELOPER CLOSING NOTES PATIENT REMAINS IN BED. ALERT AND ORIENTED X4. ON O2 VIA NC AT 1LPM TOLERATING ABOVE 95%, NO S/S OF SOB OR RESPIRATORY DISTRESS. ON TELE MONITOR SR AT 80. IV ACCESS AT LFA 22G INTACT, PATENT AND FLUSHING WELL. NOTED WITH BLE WOUND, WOUND CARE DONE PER PROTOCOL, ALL SAFETY PRECAUTIONS IN PLACE WITH BED IN LOWEST LOCKED POSITION, SIDE RAILS UP X4, BED ALARM ON, AND CALL LIGHT AND TABLE WITHIN REACH. ALL DUE MEDS GIVEN, KEPT DRY AND CLEAN, WILL ENDORSE TO AM SHIFT NURSE FOR CONTINUITY OF CARE.
--- NOTE | 2022-07-19 07:06 | NUR ---
RN OPENING NOTE PATIENT IN BED, AWAKE, ALERT AND ORIENTED X 4, ABLE TO VERBALIZE NEEDS. ON NASAL CANULA @ 1 LPM WITH BREATHING EVEN, AND UNLABORED WITH NO SOB, RESPIRATORY DISTRESS OR PAIN NOTED. IV ACCESS ON LFA TYESHA 22 PATENT AND FLUSHING WELL. WOUND CARE WILL BE PROVIDED. ALL SAFETY PRECAUTION IN PLACE, BED IN LOWEST AND LOCKED POSITION. CALL LIGHT AND TABLE WITHIN REACH. SR UP X2. WILL CONTINUE TO MONITOR.
[2022-07-19] MEDS: BLOOD SUGAR DIAGNOSTIC 1 EACH STRIP IN SCH ×4 (07:37→21:28)
[2022-07-19] MEDS: INSULIN REGULAR, HUMAN 100 UNIT/ML 3 ML VIAL SQ PRN ×4 (07:41→21:31)
[2022-07-19 08:00] VITALS: BP 122/62
[2022-07-19] MEDS: FUROSEMIDE 40 MG TABLET PO SCH (08:16)
[2022-07-19] MEDS: PANTOPRAZOLE 40 MG TABLET.DR PO SCH (08:16)
[2022-07-19] MEDS: HEPARIN SODIUM, PORCINE 5000 UNITS/1 ML VIAL SQ SCH ×2 (08:17→21:31)
[2022-07-19] MEDS: FUROSEMIDE 100 MG/10 ML VIAL IV SCH ×3 (10:03→18:00)
[2022-07-19] MEDS: LEVOFLOXACIN (250MG) 250 MG TABLET PO SCH (10:03)
[2022-07-19 12:00] VITALS: BP 111/66
--- NOTE | 2022-07-19 15:26 | NUR ---
RN NOTE VISITOR BK FROM [facility] CAME IN TO SEE PATIENT FOR LIFE VEST, PATIENT REFUSES TO BE FITTED. DOCTOR IRENE NOTIFIED, NO NEW ORDERS RECEIVED.
[2022-07-19 16:00] VITALS: BP 121/66
--- NOTE | 2022-07-19 18:01 | NUR ---
RN NOTE PATIENT REFUSING LASIX, TEACHINGS PROVIDED ON BENEFITS AND RISK, CONTINUES TO REFUSE, DOCTOR KALYN IVY NOTIFIED.
--- NOTE | 2022-07-19 18:59 | NUR ---
RN CLOSING NOTE PATIENT IN BED, AWAKE, ALERT AND ORIENTED X 4, ABLE TO VERBALIZE NEEDS. ON NASAL CANULA @ 1 LPM WITH BREATHING EVEN, AND UNLABORED WITH NO SOB, RESPIRATORY DISTRESS OR PAIN NOTED. IV ACCESS ON LFA TYESHA 20 PATENT AND FLUSHING WELL. WOUND CARE PROVIDED PER MD ORDERS. ALL MEDICATIONS GIVEN WITH EXCEPTION OF LASIX WHICH WAS REFUSED, MD WAS NOTIFIED AND TEACHINGS WERE PROVIDED. PATIENT WAS REPOSITIONED EVERY TWO HOURS. ALL SAFETY PRECAUTION IN PLACE, BED IN LOWEST AND LOCKED POSITION. CALL LIGHT AND TABLE WITHIN REACH. SIDE RAILS UP X2. REPORT GIVEN TO GRADE SCHOOL TEACHER NURSE FOR CONTINUING OF CARE
--- NOTE | 2022-07-19 19:30 | NUR ---
AUTO BODY REPAIRMAN OPENING NOTES RECEIVED PATIENT IN BED. ALERT AND ORIENTED X4. ON O2 VIA NC AT 1LPM TOLERATING ABOVE 95%, NO S/S OF SOB OR RESPIRATORY DISTRESS. ON TELE MONITOR SR. IV ACCESS AT LFA #22G NO IVF RUNNING AT THIS TIME. NOTED WITH BLE WOUND DRESSING C/D/I, ALL SAFETY PRECAUTIONS IN PLACE WITH BED IN LOWEST LOCKED POSITION, SIDE RAILS UP X4, BED ALARM ON, AND CALL LIGHT AND TABLE WITHIN REACH. WILL CONTINUE TO MONITOR THROUGHOUT THE SHIFT.
[2022-07-19 20:00] VITALS: BP 119/74
[2022-07-19] MEDS: ZOLPIDEM TARTRATE 5 MG TABLET PO PRN (21:58)
--- NOTE | 2022-07-19 21:59 | NUR ---
RN NOTE PT REQUESTED FOR SLEEPING PILL, AMBIEN GIVEN ORDERED. WILL CONT TO MONITOR.
[2022-07-20] VITALS: BP 110/73
[2022-07-20] MEDS: ALBUTEROL HALF STRENGTH 1.25 MG/3 ML VIAL.NEB NEB SCH ×4 (01:34→19:45)
[2022-07-20] MEDS: IPRATROPIUM NEB FS 0.5 MG/2.5 ML AMPUL.NEB NEB SCH ×4 (01:34→19:45)
[2022-07-20 04:00] VITALS: BP 118/71
[2022-07-20] MEDS: MORPHINE SULFATE INJ 4 MG/ML DISP.SYRIN IV PRN (05:12)
[2022-07-20 06:23] LABS: BASOPHILS % (AUTO) 0.3 % (0.0-2.0); EOSINOPHILS % (AUTO) 5.5 % (0.0-6.0); HEMATOCRIT 39 % (39-51); HEMOGLOBIN 12.3 g/dL (13.5-17.5); LYMPHOCYTES # (AUTO) 0.7 K/uL (0.8-4.8); LYMPHOCYTES % (AUTO) 14.3 % (20.0-44.0); MEAN CORPUSCULAR HGB CONC 32 g/dl (31.0-36.0); MEAN CORPUSCULAR VOLUME 84 fL (80-96); MONOCYTES # (AUTO) 0.6 K/uL (0.1-1.30); MONOCYTES % (AUTO) 12.7 % (2.0-12.0); NEUTROPHILS # (AUTO) 3.4 K/uL (1.8-8.9); NEUTROPHILS % (AUTO) 67.2 % (43.0-81.0); PLATELET COUNT (AUTO) 207 K/uL (150-450); RED BLOOD CELL COUNT(AUTO) 4.63 MIL/uL (4.5-6.0)
--- NOTE | 2022-07-20 07:00 | NUR ---
RN OPENING NOTE PATIENT IN BED, AWAKE, ALERT AND ORIENTED X 4, ABLE TO VERBALIZE NEEDS. ON NASAL CANULA @ 1 LPM 02 SAT 96% BREATHING EVEN, AND UNLABORED WITH NO SOB, RESPIRATORY DISTRESS OR PAIN NOTED. IV ACCESS ON LFA TYESHA 22 PATENT AND FLUSHING WELL. WOUND CARE WILL BE PROVIDED. ALL SAFETY PRECAUTION IN PLACE, BED IN LOWEST AND LOCKED POSITION. CALL LIGHT AND TABLE WITHIN REACH. SR UP X2. WILL CONTINUE TO MONITOR.
[2022-07-20 07:24] LABS: ALANINE AMINOTRANSFERASE 18 U/L (12-78); ALBUMIN 2.1 g/dL (3.4-5.0); ALKALINE PHOSPHATASE 73 U/L (46-116); ASPARTATE AMINOTRANSFERASE 12 U/L (15-37); BILIRUBIN,TOTAL 0.3 mg/dL (0.2-1.0); CALCIUM, SERUM 8.8 mg/dL (8.5-10.1); CARBON DIOXIDE 28 mmol/L (21-32); CHLORIDE 107 mmol/L (98-107); CREATININE 2.1 mg/dL (0.6-1.3); GLUCOSE 176 mg/dL (74-106); MAGNESIUM 1.7 mg/dL (1.8-2.4); PHOSPHORUS 3.1 mg/dL (2.5-4.9); SODIUM SERUM 143 mmol/L (136-145); TOTAL PROTEIN, SERUM 6.3 g/dL (6.4-8.2); UREA NITROGEN, BLOOD 39 mg/dL (7-18)
[2022-07-20] MEDS: BLOOD SUGAR DIAGNOSTIC 1 EACH STRIP IN SCH ×4 (07:59→22:13)
[2022-07-20 08:00] VITALS: BP 116/71
[2022-07-20] MEDS: HEPARIN SODIUM, PORCINE 5000 UNITS/1 ML VIAL SQ SCH (08:08)
[2022-07-20] MEDS: INSULIN REGULAR, HUMAN 100 UNIT/ML 3 ML VIAL SQ PRN ×3 (08:09→22:16)
[2022-07-20] MEDS: PANTOPRAZOLE 40 MG TABLET.DR PO SCH (08:09)
[2022-07-20] MEDS ORDERED: FUROSEMIDE 20 MG TABLET PO SCH (09:00)
[2022-07-20] MEDS: FUROSEMIDE 20 MG TABLET PO SCH (09:01)
[2022-07-20] MEDS ORDERED: MAGNESIUM OXIDE 400 MG TABLET PO ONE (10:00)
[2022-07-20] MEDS: LEVOFLOXACIN (250MG) 250 MG TABLET PO SCH (10:29)
[2022-07-20 12:00] VITALS: BP 117/71
[2022-07-20] MEDS: ONDANSETRON HCL/PF 4 MG/2 ML VIAL IVP PRN ×2 (14:08→20:38)
--- NOTE | 2022-07-20 15:34 | NUR ---
RN NOTE PATIENT STATING THAT HE WANTS TO GO HOME, REFUSING LIFE VEST, PATIENT HAS A CURRENT ORDER FOR ULTRASOUND GUIDED THORACENTESIS OF THE LUNG TO BE DONE BY SATURDAY BUT PATIENT DOES NOT WANT TO WAIT. DR BIJU MCCAIN NOTIFIED AND ORDERS GIVEN TO HAVE PATIENT BE SEEN BY PSYCHIATRIC DOCTOR. ORDER PLACED. WILL CONTINUE TO MONITOR PATIENT.
[2022-07-20 16:00] VITALS: BP 119/69
--- NOTE | 2022-07-20 19:30 | NUR ---
HULL OUTFIT SUPERVISOR OPENING NOTE RECEIVED PATIENT IN BED, AWAKE, RESTING COMFORTABLY. PT IS ALERT AND ORIENTED X4, ABLE TO VERBALIZE NEEDS. ON O2 VIA NC AT 2 LPM, TOLERATING WELL, SATING @ 96%. NO S/SX OF ACUTE RESPIRATORY DISTRESS NOTED AT THIS TIME. NO SOB. BREATHING IS EVEN AND UNLABORED. ON TELE MONITOR READING SR WITH HR IN 70s. IV ACCESS ON LFA #22G, PATENT, INTACT AND SL. NOTED WITH BLE WOUND DRESSING C/D/I. ALL SAFETY MEASURES IN PLACE: BED IN LOWEST LOCKED POSITION, SIDE RAILS UP X 3, BED ALARM ON, AND CALL LIGHT AND TABLE WITHIN REACH. WILL CONTINUE TO MONITOR THROUGHOUT THE SHIFT.
--- NOTE | 2022-07-20 19:40 | NUR ---
RN CLOSING NOTE PATIENT IN BED, AWAKE, ALERT AND ORIENTED X 4, ABLE TO VERBALIZE NEEDS. ON NASAL CANULA @ 1 LPM WITH BREATHING EVEN, AND UNLABORED WITH NO SOB, RESPIRATORY DISTRESS OR PAIN NOTED. IV ACCESS ON LFA TYESHA 20 PATENT AND FLUSHING WELL. WOUND CARE PROVIDED PER MD ORDER. ALL MORNING MEDICATIONS GIVEN. PATIENT WAS REPOSITIONED EVERY TWO HOURS. ALL SAFETY PRECAUTION IN PLACE, BED IN LOWEST AND LOCKED POSITION. CALL LIGHT AND TABLE WITHIN REACH. SIDE RAILS UP X2. REPORT GIVEN TO LIP CUTTER NURSE FOR CONTINUING OF CARE
[2022-07-20 20:00] VITALS: BP 113/70
[2022-07-20] MEDS ORDERED: METOCLOPRAMIDE HCL 10 MG/2 ML VIAL IV SCH ×2 (20:00→20:30)
[2022-07-20] MEDS ORDERED: METOCLOPRAMIDE HCL 10 MG/2 ML VIAL IV PRN (20:30)
[2022-07-20] MEDS: HYDROCODONE/APAP 5/325MG TABLET PO PRN (22:18)
[2022-07-21] VITALS: BP 116/71
[2022-07-21] MEDS: ALBUTEROL HALF STRENGTH 1.25 MG/3 ML VIAL.NEB NEB SCH ×4 (01:03→19:55)
[2022-07-21] MEDS: IPRATROPIUM NEB FS 0.5 MG/2.5 ML AMPUL.NEB NEB SCH ×4 (01:03→19:55)
[2022-07-21] MEDS: ONDANSETRON HCL/PF 4 MG/2 ML VIAL IVP PRN ×3 (01:34→20:12)
[2022-07-21 04:00] VITALS: BP 116/59
[2022-07-21] MEDS: HYDROCODONE/APAP 5/325MG TABLET PO PRN (04:33)
[2022-07-21 06:00] LABS: EOSINOPHILS % (AUTO) 6.2 % (0.0-6.0); HEMATOCRIT 38 % (39-51); HEMOGLOBIN 12.1 g/dL (13.5-17.5); LYMPHOCYTES # (AUTO) 0.7 K/uL (0.8-4.8); LYMPHOCYTES % (AUTO) 13.7 % (20.0-44.0); MEAN CORPUSCULAR HGB CONC 32 g/dl (31.0-36.0); MEAN CORPUSCULAR VOLUME 85 fL (80-96); MONOCYTES # (AUTO) 0.5 K/uL (0.1-1.30); MONOCYTES % (AUTO) 9.9 % (2.0-12.0); NEUTROPHILS # (AUTO) 3.6 K/uL (1.8-8.9); NEUTROPHILS % (AUTO) 69.2 % (43.0-81.0); PLATELET COUNT (AUTO) 200 K/uL (150-450); RED BLOOD CELL COUNT(AUTO) 4.52 MIL/uL (4.5-6.0); WHITE BLOOD COUNT (AUTO) 5.2 K/uL (4.3-11.0)
[2022-07-21 06:10] LABS: CALCIUM, SERUM 8.8 mg/dL (8.5-10.1); CARBON DIOXIDE 31 mmol/L (21-32); CHLORIDE 106 mmol/L (98-107); CREATININE 2.3 mg/dL (0.6-1.3); GLUCOSE 164 mg/dL (74-106); MAGNESIUM 1.7 mg/dL (1.8-2.4); PHOSPHORUS 3.6 mg/dL (2.5-4.9); POTASSIUM 4.2 mmol/L (3.5-5.1); SODIUM SERUM 142 mmol/L (136-145); UREA NITROGEN, BLOOD 41 mg/dL (7-18)
--- NOTE | 2022-07-21 06:49 | NUR ---
HOP WEIGHER CLOSING NOTE PT REMAINED STABLE T/O THE NIGHT. VS WNL. C/O OF NAUSEA AND PAIN MANAGED WITH PRN MEDS, RESOLVED IMMEDIATELY AFTER ADMINISTERED. ALL NEEDS MET. PM CARE DONE. TURNED AND REPOSITIONED. WILL ENDORSE TO AM SHIFT NURSE FOR ZANA.
--- NOTE | 2022-07-21 07:30 | NUR ---
PT RECEIVED RESTING COMFORTABLY IN BED. NO S/S OR C/O PAIN OR DISTRESS NOTED. SIDE RAILS UP X2, CALL LIGHT LEFT WITHIN REACH. WILL CONTINUE PLAN OF CARE.
[2022-07-21 08:00] VITALS: BP 116/59
[2022-07-21] MEDS: BLOOD SUGAR DIAGNOSTIC 1 EACH STRIP IN SCH ×4 (09:05→22:31)
[2022-07-21] MEDS: FUROSEMIDE 20 MG TABLET PO SCH (09:05)
[2022-07-21] MEDS: INSULIN REGULAR, HUMAN 100 UNIT/ML 3 ML VIAL SQ PRN ×4 (09:06→22:32)
[2022-07-21] MEDS: PANTOPRAZOLE 40 MG TABLET.DR PO SCH (09:06)
[2022-07-21 12:00] VITALS: BP 113/66
[2022-07-21] MEDS: LEVOFLOXACIN (250MG) 250 MG TABLET PO SCH (12:19)
[2022-07-21] MEDS ORDERED: MAGNESIUM OXIDE 400 MG TABLET PO ONE (13:00)
[2022-07-21] MEDS: MORPHINE SULFATE INJ 4 MG/ML DISP.SYRIN IV PRN (14:06)
--- NOTE | 2022-07-21 14:55 | NUR ---
Per ISABEL Park the procedure being routine , it will be scheduled for Saturday. TATIANA Mcqueen was informed.
[2022-07-21 16:00] VITALS: BP 121/72
--- NOTE | 2022-07-21 18:47 | NUR ---
CHANGE OF SHIFT REPORT PT RESTING COMFORTABLY IN BED. NO S/S OR C/O PAIN OR DISTRESS NOTED. SIDE RAILS UP X2, CALL LIGHT LEFT WITHIN REACH. PT KEPT CLEAN, DRY, AND COMFORTABLE. NO SIGNIFICANT CHANGES SINCE PREVIOUS SHIFT. WILL GIVE REPORT TO JENN SIMPSON.
--- NOTE | 2022-07-21 19:30 | NUR ---
STONE MILL OPERATOR OPENING NOTE RECEIVED PATIENT IN BED, AWAKE, RESTING. PT IS ALERT AND ORIENTED X4, ABLE TO VERBALIZE NEEDS. ON O2 VIA NC AT 2 LPM, TOLERATING WELL, NO S/SX OF ACUTE RESPIRATORY DISTRESS NOTED AT THIS TIME. NO SOB. BREATHING IS EVEN AND UNLABORED. ON TELE MONITOR READING SR WITH HR 74. IV ACCESS ON LFA #22G, PATENT, INTACT AND SL. NOTED WITH BLE WOUND DRESSING C/D/I. ALL SAFETY MEASURES IN PLACE: BED IN LOWEST LOCKED POSITION, SIDE RAILS UP X 3, BED ALARM ON, AND CALL LIGHT AND TABLE WITHIN REACH. WILL CONTINUE PLAN OF CARE
[2022-07-21 20:00] VITALS: BP 113/79
[2022-07-22 00:59] VITALS: BP 123/74
[2022-07-22] MEDS: ALBUTEROL HALF STRENGTH 1.25 MG/3 ML VIAL.NEB NEB SCH ×4 (02:06→20:14)
[2022-07-22] MEDS: IPRATROPIUM NEB FS 0.5 MG/2.5 ML AMPUL.NEB NEB SCH ×4 (02:06→20:14)
[2022-07-22] MEDS: MORPHINE SULFATE INJ 4 MG/ML DISP.SYRIN IV PRN ×2 (03:51→20:12)
[2022-07-22 05:30] VITALS: BP 137/97
--- NOTE | 2022-07-22 06:30 | NUR ---
MANAGER LIFE INSURANCE CLOSING NOTE PATIENT IN BED, AWAKE, ALERT AND ORIENTED X 4, ABLE TO VERBALIZE NEEDS. ON NASAL CANULA @ 2 LPM. BREATHING EVEN, AND UNLABORED, NO SOB OR DISTRESS NOTED, DENIES PAIN AT THIS TIME. IV ACCESS ON LFA TYESHA 20 PATENT AND FLUSHING WELL. WOUND CARE PROVIDED PER MD ORDER. PATIENT WAS REPOSITIONED EVERY TWO HOURS. ALL SAFETY PRECAUTION IN PLACE, BED IN LOWEST AND LOCKED POSITION. CALL LIGHT AND TABLE WITHIN REACH. SIDE RAILS UP X2. WILL REPORT ZANA TO AM NURSE.
--- NOTE | 2022-07-22 07:00 | NUR ---
RN OPENING NOTE PATIENT IN BED, AWAKE, ALERT AND ORIENTED X 4, ABLE TO VERBALIZE NEEDS. ON NASAL CANULA @ 2 LPM. BREATHING EVEN, AND UNLABORED, NO SOB OR DISTRESS NOTED, DENIES PAIN AT THIS TIME. IV ACCESS ON LFA TYESHA 20 PATENT AND FLUSHING WELL. ALL SAFETY PRECAUTION IN PLACE, BED IN LOWEST AND LOCKED POSITION. CALL LIGHT AND TABLE WITHIN REACH. SIDE RAILS UP X2. WILL CONTINUE TO MONITOR.
[2022-07-22 07:07] LABS: BASOPHILS % (AUTO) 0.6 % (0.0-2.0); EOSINOPHILS % (AUTO) 6.7 % (0.0-6.0); HEMATOCRIT 39 % (39-51); LYMPHOCYTES # (AUTO) 0.9 K/uL (0.8-4.8); LYMPHOCYTES % (AUTO) 16.3 % (20.0-44.0); MEAN CORPUSCULAR HGB CONC 31 g/dl (31.0-36.0); MEAN CORPUSCULAR VOLUME 85 fL (80-96); MONOCYTES # (AUTO) 0.7 K/uL (0.1-1.30); MONOCYTES % (AUTO) 12.3 % (2.0-12.0); NEUTROPHILS # (AUTO) 3.5 K/uL (1.8-8.9); NEUTROPHILS % (AUTO) 64.1 % (43.0-81.0); PLATELET COUNT (AUTO) 192 K/uL (150-450); RED BLOOD CELL COUNT(AUTO) 4.59 MIL/uL (4.5-6.0); WHITE BLOOD COUNT (AUTO) 5.4 K/uL (4.3-11.0)
[2022-07-22] MEDS: BLOOD SUGAR DIAGNOSTIC 1 EACH STRIP IN SCH ×4 (07:23→21:53)
[2022-07-22 07:35] LABS: CALCIUM, SERUM 8.8 mg/dL (8.5-10.1); CARBON DIOXIDE 29 mmol/L (21-32); CHLORIDE 104 mmol/L (98-107); CREATININE 2.5 mg/dL (0.6-1.3); GLUCOSE 133 mg/dL (74-106); MAGNESIUM 1.7 mg/dL (1.8-2.4); PHOSPHORUS 3.8 mg/dL (2.5-4.9); POTASSIUM 4.1 mmol/L (3.5-5.1); SODIUM SERUM 142 mmol/L (136-145); UREA NITROGEN, BLOOD 45 mg/dL (7-18)
[2022-07-22 08:00] VITALS: BP 112/72
[2022-07-22] MEDS: PANTOPRAZOLE 40 MG TABLET.DR PO SCH (08:14)
[2022-07-22] MEDS: FUROSEMIDE 20 MG TABLET PO SCH (08:19)
[2022-07-22] MEDS: LEVOFLOXACIN (250MG) 250 MG TABLET PO SCH (10:00)
[2022-07-22] MEDS ORDERED: MAGNESIUM OXIDE 400 MG TABLET PO ONE (10:30)
[2022-07-22] MEDS: INSULIN REGULAR, HUMAN 100 UNIT/ML 3 ML VIAL SQ PRN ×3 (11:48→21:57)
[2022-07-22 12:00] VITALS: BP 94/51
--- NOTE | 2022-07-22 14:30 | NUR ---
WEB SITE PROJECT MANAGER RADIOLOGIST, DR. HARVEY NOT AVAILABLE. THE PROCEDURE WILL BE DONE TOMORROW. CHARGE NURSE, JESSICA WAS INFORMED.
[2022-07-22 16:00] VITALS: BP 99/56
--- NOTE | 2022-07-22 19:17 | NUR ---
RN CLOSING NOTE PATIENT IN BED, ASLEEP, ON NASAL CANULA @ 2 LPM. BREATHING EVEN, AND UNLABORED, NO SOB. IV ACCESS ON LFA TYESHA 20 PATENT AND FLUSHING WELL. ALL SAFETY PRECAUTION IN PLACE, BED IN LOWEST AND LOCKED POSITION. CALL LIGHT AND TABLE WITHIN REACH. SIDE RAILS UP X2. WILL ENDORSE TO THE UPCOMING SHIFT FOR ZANA..
--- NOTE | 2022-07-22 19:30 | NUR ---
BIOLOGY TEACHER OPENING NOTE RECEIVED PATIENT AWAKE IN BED, WATCHING TV AT THIS TIME. A/O X4, ABLE TO MAKE NEEDS KNOWN. ON O2 2L VIA NC, BREATHING EVEN, AND UNLABORED, NO SOB NOTED. PT C/O PAIN 08/27 ON B/L LEGS AND REQUESTING SCHEDULED BREATHING TX. LUNG SOUNDS CLEAR AND O2 SAT AT 98%. RT NOTIFIED OF PT REQUEST. ON CORPORATE STAFF ACCOUNTANT READING SR WITH BBB, 74 HR. IV ACCESS LFA #22G, PATENT, INTACT, FLUSHING WELL. SAFETY PRECAUTIONS IN PLACE: BED LOCKED AND IN LOWEST POSITION, SIDE RAILS UP X3, CALL LIGHT AND TRAY TABLE WITHIN REACH. WILL CONTINUE TO MONITOR AND ASSIST.
[2022-07-22 20:00] VITALS: BP 110/70
[2022-07-23] VITALS: BP 104/63
[2022-07-23] MEDS: MORPHINE SULFATE INJ 4 MG/ML DISP.SYRIN IV PRN ×5 (00:30→23:56)
[2022-07-23] MEDS: IPRATROPIUM NEB FS 0.5 MG/2.5 ML AMPUL.NEB NEB SCH ×4 (01:51→20:12)
[2022-07-23] MEDS: ALBUTEROL HALF STRENGTH 1.25 MG/3 ML VIAL.NEB NEB SCH ×4 (01:51→20:12)
[2022-07-23 04:00] VITALS: BP 115/85
[2022-07-23 06:03] LABS: BASOPHILS % (AUTO) 0.5 % (0.0-2.0); EOSINOPHILS % (AUTO) 5.2 % (0.0-6.0); HEMATOCRIT 39 % (39-51); HEMOGLOBIN 12.3 g/dL (13.5-17.5); LYMPHOCYTES # (AUTO) 0.8 K/uL (0.8-4.8); LYMPHOCYTES % (AUTO) 15.4 % (20.0-44.0); MEAN CORPUSCULAR HGB CONC 32 g/dl (31.0-36.0); MEAN CORPUSCULAR VOLUME 83 fL (80-96); MONOCYTES # (AUTO) 0.5 K/uL (0.1-1.30); MONOCYTES % (AUTO) 10.6 % (2.0-12.0); NEUTROPHILS # (AUTO) 3.5 K/uL (1.8-8.9); NEUTROPHILS % (AUTO) 68.3 % (43.0-81.0); PLATELET COUNT (AUTO) 191 K/uL (150-450); WHITE BLOOD COUNT (AUTO) 5.1 K/uL (4.3-11.0)
[2022-07-23 06:14] LABS: CALCIUM, SERUM 8.8 mg/dL (8.5-10.1); CARBON DIOXIDE 30 mmol/L (21-32); CHLORIDE 103 mmol/L (98-107); CREATININE 2.6 mg/dL (0.6-1.3); GLUCOSE 133 mg/dL (74-106); MAGNESIUM 1.8 mg/dL (1.8-2.4); PHOSPHORUS 3.6 mg/dL (2.5-4.9); POTASSIUM 3.9 mmol/L (3.5-5.1); SODIUM SERUM 141 mmol/L (136-145); UREA NITROGEN, BLOOD 51 mg/dL (7-18)
--- NOTE | 2022-07-23 06:32 | NUR ---
PUTTY MIXER AND APPLIER CLOSING NOTE PATIENT AWAKE IN BED, WATCHING TV AT THIS TIME. A/O X4, ABLE TO MAKE NEEDS KNOWN. STABLE ON O2 2L VIA NC, BREATHING EVEN, AND UNLABORED, NO SOB NOTED, O2 SAT AT 100%. DENIES PAIN AT THIS TIME. ON INDUSTRIAL PHARMACIST READING SR WITH BBB, 75 HR. IV ACCESS LFA #22G, PATENT, INTACT, FLUSHING WELL. ALL CARE PROVIDED AND MEDS TOLERATED WELL. SAFETY PRECAUTIONS MAINTAINED: BED LOCKED AND IN LOWEST POSITION, SIDE RAILS UP X3, CALL LIGHT AND TRAY TABLE WITHIN REACH. WILL ENDORSE ZANA TO DAY SHIFT NURSE.
[2022-07-23] MEDS: BLOOD SUGAR DIAGNOSTIC 1 EACH STRIP IN SCH ×4 (07:12→22:07)
--- NOTE | 2022-07-23 07:15 | NUR ---
RN OPEN NOTE PATIENT IN BED, AWAKE, ALERT AND ORIENTED X 4, ABLE TO VERBALIZE NEEDS. ON NASAL CANULA @ 2 LPM. BREATHING EVEN, AND UNLABORED, NO SOB OR DISTRESS NOTED, DENIES PAIN AT THIS TIME. IV ACCESS ON RFA TYESHA 20 PATENT AND FLUSHING WELL. BLE MULTIPLE WOUNDS ALL SAFETY PRECAUTION IN PLACE, BED IN LOWEST AND LOCKED POSITION. CALL LIGHT AND TABLE WITHIN REACH. SIDE RAILS UP X2. WILL CONTINUE TO MONITOR
[2022-07-23 08:00] VITALS: BP 115/70
[2022-07-23] MEDS: FUROSEMIDE 20 MG TABLET PO SCH (08:49)
[2022-07-23] MEDS: PANTOPRAZOLE 40 MG TABLET.DR PO SCH (08:49)
--- NOTE | 2022-07-23 10:43 | NUR ---
STAR NOTES Dr. Funez at bedside and stated there isn't enough fluid to do the thoracentesis. Dr. Pablo made aware.
[2022-07-23] MEDS: LEVOFLOXACIN (250MG) 250 MG TABLET PO SCH (11:33)
[2022-07-23] MEDS: INSULIN REGULAR, HUMAN 100 UNIT/ML 3 ML VIAL SQ PRN ×3 (11:35→17:06)
[2022-07-23 12:00] VITALS: BP 123/72
[2022-07-23] MEDS: ONDANSETRON HCL/PF 4 MG/2 ML VIAL IVP PRN ×2 (13:15→20:41)
[2022-07-23 16:00] VITALS: BP 113/70
[2022-07-23] MEDS ORDERED: FURO20TA4 PO (16:48)
[2022-07-23] MEDS ORDERED: LEVO250T59 PO (16:48)
[2022-07-23] MEDS ORDERED: IPRA0.2S9 NEB (16:48)
[2022-07-23] MEDS ORDERED: ALBU1.25 NEB (16:48)
--- NOTE | 2022-07-23 18:40 | NUR ---
[employer] AGENT CLOSING NOTES All due meds and tx given as ordered. Pt tolerated everything well. All needs attended to. Call light within reach. Will endorse to oncoming nurse.
[2022-07-23 20:00] VITALS: BP 117/71
[2022-07-24] MEDS: ALBUTEROL HALF STRENGTH 1.25 MG/3 ML VIAL.NEB NEB SCH ×2 (02:02→07:49)
[2022-07-24] MEDS: IPRATROPIUM NEB FS 0.5 MG/2.5 ML AMPUL.NEB NEB SCH ×2 (02:02→07:48)
[2022-07-24 04:00] VITALS: BP 118/72
--- NOTE | 2022-07-24 07:32 | NUR ---
RN OPENING NOTE RECEIVED PATIENT IN BED, AWAKE, ALERT AND ORIENTED X 4, ABLE TO VERBALIZE NEEDS. ON NASAL CANULA @ 2 LPM. BREATHING EVEN, AND UNLABORED, NO SOB OR DISTRESS NOTED, DENIES PAIN AT THIS TIME. IV ACCESS ON RFA G#20, INTACT, PATENT AND FLUSHING WELL. BLE MULTIPLE WOUNDS ALL SAFETY PRECAUTION IN PLACE, BED IN LOWEST AND LOCKED POSITION. CALL LIGHT AND TABLE WITHIN REACH. SIDE RAILS UP X2. WILL CONTINUE TO MONITOR
[2022-07-24 08:00] VITALS: BP 114/69
[2022-07-24] MEDS: ONDANSETRON HCL/PF 4 MG/2 ML VIAL IVP PRN (08:17)
[2022-07-24] MEDS: BLOOD SUGAR DIAGNOSTIC 1 EACH STRIP IN SCH (08:17)
[2022-07-24] MEDS: PANTOPRAZOLE 40 MG TABLET.DR PO SCH (08:18)
[2022-07-24] MEDS: FUROSEMIDE 20 MG TABLET PO SCH (08:20)
[2022-07-24] MEDS ORDERED: FUROSEMIDE 20 MG TABLET PO SCH (09:00)
[2022-07-24] MEDS: HYDROCODONE/APAP 5/325MG TABLET PO PRN (10:09)
--- NOTE | 2022-07-24 11:00 | NUR ---
RN NOTE CHARGE NURSE GAVE REPORT TO RN AT [facility]
--- NOTE | 2022-07-24 11:30 | NUR ---
RN NOTE PATIENT DISCHARGE IN STABLE MEDICAL CONDITION. A/O X4. VITAL SIGNS TAKEN, STABLE AND RECORDED. NO IV ACCESS. NAME ARM BAND REMOVED. EXTERNAL TELEHEALTH COORDINATOR REMOVED AND RETURNED TO TELE DESK. PATIENT REFUSED SKIN ASSESSMENT AND PICTURE. ALL BELONGINGS CHECKED AND BELONGING LIST SIGNED. HEALTH TEACHING AND DISCHARGE INSTRUCTION and report GIVEN TO RN AT [facility]. PATIENT LEFT UNIT VIA GURNEY WITH NO SIGNS OF DISTRESS, ACCOMPANIED BY RT AND 2 TRAINING AND QUALITY MANAGER PLUS PATIENT'S CAREGIVER. CHARGE NURSE AWARE OF DISCHARGED Addendum: 07/24/22 at 2112 by SHOLA SHEPHERD RN PATIENT LEFT UNIT VIA GURNEY WITH NO SIGNS OF DISTRESS, ACCOMPANIED BY 2 TRAINING AND QUALITY MANAGER. CHARGE NURSE AWARE OF DISCHARGED
== END 2022-07-24 11:05 | DRG 579 ==
LOC: ER 21:04 → MEDSG1 07-13 09:58 → TELE1 07-13 10:01 → TELE-TD 07-13 22:08 → TELE1 07-14 08:59 → MEDSG1 07-23 16:55
PROVIDERS: ADMIT Nurse Practitioner Acute Care; ATTEND Nurse Practitioner Acute Care
PROC: 0JBQ3ZZ Excision of Right Foot Subcutaneous Tissue and Fascia, Percutaneous Approach (ICD-10-PCS; principal; 2022-07-18)
PROC: 0JBN3ZZ Excision of Right Lower Leg Subcutaneous Tissue and Fascia, Percutaneous Approach (ICD-10-PCS; 2022-07-18)
PROC: 0JBP3ZZ Excision of Left Lower Leg Subcutaneous Tissue and Fascia, Percutaneous Approach (ICD-10-PCS; 2022-07-18)
DX: L03.116 Cellulitis of left lower limb (principal); N17.0 Acute kidney failure with tubular necrosis; E87.1 Hypo-osmolality and hyponatremia; L97.218 Non-pressure chronic ulcer of right calf with other specified severity; L97.828 Non-pressure chronic ulcer of other part of left lower leg with other specified severity; N39.0 Urinary tract infection, site not specified; I13.0 Hypertensive heart and chronic kidney disease with heart failure and stage 1 through stage 4 chronic kidney disease, or unspecified chronic kidney disease; I50.22 Chronic systolic (congestive) heart failure; J98.11 Atelectasis; L03.115 Cellulitis of right lower limb; B95.61 Methicillin susceptible Staphylococcus aureus infection as the cause of diseases classified elsewhere; B96.5 Pseudomonas (aeruginosa) (mallei) (pseudomallei) as the cause of diseases classified elsewhere; B96.1 Klebsiella pneumoniae [K. pneumoniae] as the cause of diseases classified elsewhere; E11.42 Type 2 diabetes mellitus with diabetic polyneuropathy; E11.51 Type 2 diabetes mellitus with diabetic peripheral angiopathy without gangrene; I87.2 Venous insufficiency (chronic) (peripheral); E11.622 Type 2 diabetes mellitus with other skin ulcer; Z87.891 Personal history of nicotine dependence; L97.519 Non-pressure chronic ulcer of other part of right foot with unspecified severity; Z59.01 Sheltered homelessness; Z99.3 Dependence on wheelchair; E11.22 Type 2 diabetes mellitus with diabetic chronic kidney disease; N18.30 Chronic kidney disease, stage 3 unspecified; Z98.890 Other specified postprocedural states; E87.5 Hyperkalemia; E83.39 Other disorders of phosphorus metabolism; I77.810 Thoracic aortic ectasia; J44.9 Chronic obstructive pulmonary disease, unspecified; E11.65 Type 2 diabetes mellitus with hyperglycemia; R19.7 Diarrhea, unspecified; M84.463D Pathological fracture, right fibula, subsequent encounter for fracture with routine healing; I25.10 Atherosclerotic heart disease of native coronary artery without angina pectoris
CPT/HCPCS: 36415; 71045-TC; 73590-TC; 73630-TC; 74018; 76604-TC; 80048-TC; 80053-TC; 80061-TC; 80076-TC; 80202-TC; 81001; 82570-TC; 82962-TC; 83735-TC; 83880; 84100-TC; 84443-TC; 85025-TC; 85027-TC; 85610-TC; 85652-TC; 86140-TC; 87040-TC; 87081-TC; 87086-TC; 93307-TC; 93970-TC; 94762-TC; 94799-TC; 97110-TC; 97530-TC; A4223; A4349; A6253; A6403; C9113; C9803; G0378; J0610; J1644; J1815; J1940; J2185; J2270; J2405; J2543; J2765; J3370; J3490; J7030; J7060

== ENCOUNTER 2022-09-20 15:13 | Inpatient (IN) | payer BC, OTHER ==
[~2022-09-20] VITALS: Ht 177.8 cm; Wt 101.6 kg
[~2022-09-20 15:13] MED LIST: ALBU1.25 NEB; FURO20TA4 PO; IPRA0.2S9 NEB; LEVO250T59 PO
[2022-09-20 15:57] LABS: BASOPHILS % (AUTO) 0.3 % (0.0-2.0); EOSINOPHILS % (AUTO) 0.2 % (0.0-6.0); HEMATOCRIT 31 % (39-51); HEMOGLOBIN 9.7 g/dL (13.5-17.5); LYMPHOCYTES # (AUTO) 0.8 K/uL (0.8-4.8); LYMPHOCYTES % (AUTO) 6.6 % (20.0-44.0); MEAN CORPUSCULAR HEMOGLOBIN 26 PG (26.0-33.0); MEAN CORPUSCULAR HGB CONC 31 g/dl (31.0-36.0); MEAN CORPUSCULAR VOLUME 84 fL (80-96); MONOCYTES # (AUTO) 1.3 K/uL (0.1-1.30); MONOCYTES % (AUTO) 11.2 % (2.0-12.0); NEUTROPHILS # (AUTO) 9.5 K/uL (1.8-8.9); NEUTROPHILS % (AUTO) 81.7 % (43.0-81.0); PLATELET COUNT (AUTO) 344 K/uL (150-450); RED BLOOD CELL COUNT(AUTO) 3.72 MIL/uL (4.5-6.0); RED CELL DISTRIBUTION WIDTH 19.3 % (11.5-15.0); WHITE BLOOD COUNT (AUTO) 11.7 K/uL (4.3-11.0)
[2022-09-20] MEDS ORDERED: BUMETANIDE INJ 4 MG in IV NS 0.9% 50 ML IV ONE (16:00)
[2022-09-20 16:09] LABS: CALCIUM, SERUM 9.2 mg/dL (8.5-10.1); CARBON DIOXIDE 22 mmol/L (21-32); CHLORIDE 102 mmol/L (98-107); CREATININE 5.4 mg/dL (0.6-1.3); GLUCOSE 219 mg/dL (74-106); POTASSIUM 4.8 mmol/L (3.5-5.1); SODIUM SERUM 138 mmol/L (136-145)
[2022-09-20 16:10] LABS: UREA NITROGEN, BLOOD 105 mg/dL (7-18)
[2022-09-20 16:11] LABS: INR 1.24 (0.91-1.10); PARTIAL THROMBOPLASTIN TIME 45.1 SEC (24.3-34.3); PROTHROMBIN TIME 12.9 SECS (9.2-11.1)
[2022-09-20 16:21] LABS: ALANINE AMINOTRANSFERASE 258 U/L (12-78); ALBUMIN 2.3 g/dL (3.4-5.0); ALKALINE PHOSPHATASE 376 U/L (46-116); ASPARTATE AMINOTRANSFERASE 264 U/L (15-37); BILIRUBIN,DIRECT 0.2 mg/dL (0.0-0.2); BILIRUBIN,TOTAL 0.4 mg/dL (0.2-1.0); TOTAL PROTEIN, SERUM 7.7 g/dL (6.4-8.2)
[2022-09-20 16:24] LABS: LACTIC ACID 1.7 mmol/L (0.4-2.0)
[2022-09-20 16:27] LABS: NT-PRO BNP > 35000 pg/mL (0-125)
[2022-09-20] MEDS ORDERED: BUMETANIDE INJ 4 MG in IV NS 0.9% 24 ML IV ONE (17:00)
[2022-09-20] MEDS ORDERED: ONDANSETRON HCL/PF 4 MG/2 ML VIAL IVP PRN (17:00)
[2022-09-20 23:00] VITALS: BP 110/70; TEMP 98.9; O2SAT 96
[2022-09-20] MEDS: HEPARIN SODIUM, PORCINE 5000 UNITS/1 ML VIAL IV SCH (23:46)
[2022-09-21] VITALS (24 sets, daily range): BP systolic 77–175; BP diastolic 49–151; TEMP 97.3–99.6; O2SAT 88–97
[2022-09-21 06:12] LABS: BASOPHILS % (AUTO) 0.1 % (0.0-2.0); EOSINOPHILS % (AUTO) 0.1 % (0.0-6.0); HEMATOCRIT 30 % (39-51); HEMOGLOBIN 9.2 g/dL (13.5-17.5); LYMPHOCYTES # (AUTO) 0.5 K/uL (0.8-4.8); LYMPHOCYTES % (AUTO) 3.4 % (20.0-44.0); MEAN CORPUSCULAR HEMOGLOBIN 26 PG (26.0-33.0); MEAN CORPUSCULAR HGB CONC 31 g/dl (31.0-36.0); MEAN CORPUSCULAR VOLUME 84 fL (80-96); MONOCYTES % (AUTO) 7.6 % (2.0-12.0); NEUTROPHILS # (AUTO) 12.2 K/uL (1.8-8.9); NEUTROPHILS % (AUTO) 88.8 % (43.0-81.0); PLATELET COUNT (AUTO) 326 K/uL (150-450); RED BLOOD CELL COUNT(AUTO) 3.57 MIL/uL (4.5-6.0); RED CELL DISTRIBUTION WIDTH 19.3 % (11.5-15.0); WHITE BLOOD COUNT (AUTO) 13.7 K/uL (4.3-11.0)
[2022-09-21 06:32] LABS: ALANINE AMINOTRANSFERASE 221 U/L (12-78); ALBUMIN 2.2 g/dL (3.4-5.0); ALKALINE PHOSPHATASE 311 U/L (46-116); ASPARTATE AMINOTRANSFERASE 133 U/L (15-37); BILIRUBIN,TOTAL 0.5 mg/dL (0.2-1.0); CALCIUM, SERUM 9.3 mg/dL (8.5-10.1); CARBON DIOXIDE 21 mmol/L (21-32); CHLORIDE 103 mmol/L (98-107); CREATININE 5.4 mg/dL (0.6-1.3); GLUCOSE 227 mg/dL (74-106); POTASSIUM 4.9 mmol/L (3.5-5.1); SODIUM SERUM 138 mmol/L (136-145); TOTAL PROTEIN, SERUM 7.4 g/dL (6.4-8.2)
[2022-09-21 06:48] LABS: UREA NITROGEN, BLOOD 115 mg/dL (7-18)
[2022-09-21] MEDS: HEPARIN SODIUM, PORCINE 5000 UNITS/1 ML VIAL IV SCH ×2 (08:54→17:18)
[2022-09-21] MEDS: FUROSEMIDE 100 MG/10 ML VIAL IV SCH ×3 (09:32→16:35)
[2022-09-21 11:38] LABS: THYROID STIMULATING HORMONE 1.066 uIU/mL (0.358-3.74)
[2022-09-21 12:10] LABS: PHOSPHORUS 7.2 mg/dL (2.5-4.9)
[2022-09-21] MEDS: IPRATROPIUM NEB FS 0.5 MG/2.5 ML AMPUL.NEB NEB SCH ×2 (12:54→19:40)
[2022-09-21 13:15] LABS: ABG BASE EXCESS -6.2 mmol/L; ABG OXYGEN SATURATION 84.9 % (92.0-98.5); ABG PCO2 36.4 mmHg (35.0-45.0); ABG PH 7.336 (7.350-7.450); ABG TOTAL HEMOGLOBIN 10.9 G/dL (13.5-18.0); AaDO2 190.3 mmHg; COHb 0.7 % (0.5-1.5); MetHb 0.3 % (0.0-1.5); O2Hb 84.1 % (94.0-97.0); SITE, ABG Right Brachial; VENT MODE, BG NC 5 LPM
[2022-09-21] MEDS ORDERED: FUROSEMIDE 40 MG/4 ML VIAL IV STA (19:29)
[2022-09-21] MEDS ORDERED: NOREPINEPHRINE 4 MG/4 ML AMPUL IV ONE (20:49)
[2022-09-21] MEDS ORDERED: NOREPINEPHRINE 32 MG in IV NS 0.9% 218 ML IV PRN (21:00)
[2022-09-21 21:13] LABS: ABG BASE EXCESS -7.7 mmol/L; ABG OXYGEN SATURATION 94.6 % (92.0-98.5); ABG PCO2 39.6 mmHg (35.0-45.0); ABG PH 7.285 (7.350-7.450); ABG PO2 82.4 mmHg (75.0-100.0); ABG TOTAL HEMOGLOBIN 10.5 G/dL (13.5-18.0); COHb 0.4 % (0.5-1.5); MetHb 0.1 % (0.0-1.5); O2Hb 94.1 % (94.0-97.0); SITE, ABG Left Radial; VENT MODE, BG HFNC 100% + NRB
[2022-09-21] MEDS ORDERED: IV NS 0.9% 250 ML IV PRN (21:30)
[2022-09-21] MEDS: IV NS 0.9% 250 ML IV PRN (21:52)
[2022-09-21] MEDS ORDERED: FUROSEMIDE 100 MG/10 ML VIAL ONE (21:58)
[2022-09-22] VITALS (56 sets, daily range): BP systolic 72–133; BP diastolic 50–82; TEMP 97.1–98.6; O2SAT 89–100
[2022-09-22] MEDS: IPRATROPIUM NEB FS 0.5 MG/2.5 ML AMPUL.NEB NEB SCH ×4 (00:54→19:52)
[2022-09-22 02:36] LABS: APPEARANCE,URINE SLIGHTLY CLOUDY (CLEAR); BILIRUBIN,URINE NEGATIVE (NEGATIVE); BLOOD, URINE 3+ Ery/uL (NEGATIVE); COLOR,URINE YELLOW (YELLOW); KETONES,URINE NEGATIVE (NEGATIVE); LEUKOCYTE ESTERASE ,URINE TRACE (NEGATIVE); NITRITE, URINE NEGATIVE (NEGATIVE); PH,URINE 5.5 (5.0-8.0); PROTEIN,URINE 2+ mg/dl (NEGATIVE); UGLUCOSE TRACE mg/dL (NEGATIVE); UROBILINOGEN,URINE 0.2 EU/dL (0.2)
[2022-09-22 02:50] LABS: CREATININE, URINE 165.5 MG/DL (30.0-125.0)
[2022-09-22 02:55] LABS: ADD URINE CULTURE YES; BACTERIA,URINE 2+ /HPF (None Seen); MUCUS,URINE Moderate /LPF (None Seen); SQUAMOUS EPITHELIAL CELL,UR None Seen /HPF (None Seen); WBC,URINE 0-2 /HPF (0-3)
[2022-09-22 03:07] LABS: EOSINOPHIL,URINE None Seen
[2022-09-22 05:14] LABS: BASOPHILS % (AUTO) 0.1 % (0.0-2.0); HEMATOCRIT 33 % (39-51); LYMPHOCYTES # (AUTO) 0.5 K/uL (0.8-4.8); LYMPHOCYTES % (AUTO) 2.6 % (20.0-44.0); MEAN CORPUSCULAR HEMOGLOBIN 26 PG (26.0-33.0); MEAN CORPUSCULAR HGB CONC 30 g/dl (31.0-36.0); MEAN CORPUSCULAR VOLUME 86 fL (80-96); MONOCYTES % (AUTO) 10.1 % (2.0-12.0); NEUTROPHILS # (AUTO) 17.5 K/uL (1.8-8.9); NEUTROPHILS % (AUTO) 87.2 % (43.0-81.0); PLATELET COUNT (AUTO) 392 K/uL (150-450); RED BLOOD CELL COUNT(AUTO) 3.89 MIL/uL (4.5-6.0); RED CELL DISTRIBUTION WIDTH 19.8 % (11.5-15.0)
[2022-09-22 05:25] LABS: ALANINE AMINOTRANSFERASE 241 U/L (12-78); ALBUMIN 2.2 g/dL (3.4-5.0); ALKALINE PHOSPHATASE 280 U/L (46-116); ASPARTATE AMINOTRANSFERASE 116 U/L (15-37); BILIRUBIN,TOTAL 0.7 mg/dL (0.2-1.0); CARBON DIOXIDE 19 mmol/L (21-32); CHLORIDE 103 mmol/L (98-107); CREATININE 4.8 mg/dL (0.6-1.3); GLUCOSE 208 mg/dL (74-106); MAGNESIUM 2.7 mg/dL (1.8-2.4); POTASSIUM 4.9 mmol/L (3.5-5.1); SODIUM SERUM 140 mmol/L (136-145); TOTAL PROTEIN, SERUM 7.7 g/dL (6.4-8.2)
[2022-09-22 05:26] LABS: UREA NITROGEN, BLOOD 93 mg/dL (7-18)
[2022-09-22 08:09] LABS: ABG OXYGEN SATURATION 97.1 % (92.0-98.5); ABG PCO2 38.9 mmHg (35.0-45.0); ABG PH 7.285 (7.350-7.450); ABG PO2 100.6 mmHg (75.0-100.0); ABG TOTAL HEMOGLOBIN 10.9 G/dL (13.5-18.0); AaDO2 573.5 mmHg; COHb 0.4 % (0.5-1.5); MetHb 0.2 % (0.0-1.5); O2Hb 96.5 % (94.0-97.0); SITE, ABG Right Radial; VENT MODE, BG HFNC 100%+ NRB MASK
[2022-09-22] MEDS: HEPARIN SODIUM, PORCINE 5000 UNITS/1 ML VIAL IV SCH ×2 (09:23→17:54)
[2022-09-22] MEDS ORDERED: NOREPINEPHRINE 8 MG in IV NS 0.9% 250ML IV PRN (10:00)
[2022-09-22] MEDS: ACETYLCYSTEINE 20% SOLN 800 MG/4 ML VIAL NEB SCH ×4 (12:30→23:48)
[2022-09-22] MEDS ORDERED: VANCOMYCIN HCL 1.25 GM in IV D5W 260 ML IV ONE (12:30)
[2022-09-22] MEDS ORDERED: ACET-868 PO (14:52)
[2022-09-22] MEDS ORDERED: INSU100V3 SQ (14:52)
[2022-09-22] MEDS ORDERED: HYDR-3980 PO (14:52)
[2022-09-22] MEDS ORDERED: LORA10TA7 PO (14:52)
[2022-09-22] MEDS ORDERED: BISA10SU11 RC (14:52)
[2022-09-22] MEDS ORDERED: FLUT1DIS3 IH (14:52)
[2022-09-22] MEDS ORDERED: ATOR80TA PO (14:52)
[2022-09-22] MEDS ORDERED: REPA1TAB7 PO (14:52)
[2022-09-22] MEDS ORDERED: ALBU8.5H8 IH (14:52)
[2022-09-22] MEDS ORDERED: COLL30OI TP (14:52)
[2022-09-22] MEDS ORDERED: GABA300C PO (14:52)
[2022-09-22] MEDS ORDERED: INSU100I30 SQ (14:52)
[2022-09-22] MEDS ORDERED: MULT-213 PO (14:52)
[2022-09-22] MEDS ORDERED: XEROFORM TP (14:52)
[2022-09-22] MEDS ORDERED: CALC-494 PO (14:52)
[2022-09-22] MEDS ORDERED: FERR325T28 PO (14:52)
[2022-09-22] MEDS ORDERED: SODI473S8 TP (14:52)
[2022-09-22] MEDS ORDERED: AMIN887L7 PO (14:52)
[2022-09-22] MEDS ORDERED: MAGN400O6 PO (14:52)
[2022-09-22] MEDS ORDERED: NA P133E RC (14:52)
[2022-09-22] MEDS ORDERED: ACET-2605 PO (14:52)
[2022-09-22] MEDS ORDERED: BUME1TAB9 PO (14:52)
[2022-09-22] MEDS ORDERED: ISOS30TA86 PO (14:52)
[2022-09-22] MEDS ORDERED: ONDA4TAB5 PO (14:52)
[2022-09-22] MEDS ORDERED: TIOT18CA3 IH (14:52)
[2022-09-22] MEDS ORDERED: POVI3780 TP (14:52)
[2022-09-22] MEDS ORDERED: ASCO-340 PO (14:52)
[2022-09-22] MEDS ORDERED: NORM210S TP (14:52)
[2022-09-22] MEDS ORDERED: TAMS-12 PO (14:52)
[2022-09-22] MEDS ORDERED: ARGI1POW13 PO (14:52)
[2022-09-22] MEDS ORDERED: EMPA10TA PO (14:52)
[2022-09-22] MEDS ORDERED: THERAHONEY TP (14:52)
[2022-09-22] MEDS ORDERED: NITR0.4T48 SL (14:52)
[2022-09-22] MEDS ORDERED: APIX5TAB PO (14:52)
[2022-09-22] MEDS: PIPERACILLIN /TAZOBACTAM 2.25 G in IV D5W 50 ML IV SCH ×2 (15:39→21:32)
[2022-09-22] MEDS ORDERED: PIPERACILLIN /TAZOBACTAM 4.5 G in IV D5W 50 ML IV SCH (18:00)
[2022-09-22] MEDS: IV NS 0.9% 250 ML IV PRN (18:20)
[2022-09-22] MEDS: NOREPINEPHRINE 8 MG in IV NS 0.9% 250ML IV PRN (22:06)
[2022-09-23] VITALS (64 sets, daily range): BP systolic 83–126; BP diastolic 50–83; TEMP 96.3–98.8; O2SAT 95–100
[2022-09-23] MEDS: IPRATROPIUM NEB FS 0.5 MG/2.5 ML AMPUL.NEB NEB SCH ×4 (02:14→20:31)
[2022-09-23] MEDS: PIPERACILLIN /TAZOBACTAM 2.25 G in IV D5W 50 ML IV SCH ×3 (04:29→20:00)
[2022-09-23 05:46] LABS: CALCIUM, SERUM 9.4 mg/dL (8.5-10.1); CARBON DIOXIDE 23 mmol/L (21-32); CHLORIDE 103 mmol/L (98-107); CREATININE 4.4 mg/dL (0.6-1.3); GLUCOSE 213 mg/dL (74-106); SODIUM SERUM 140 mmol/L (136-145); UREA NITROGEN, BLOOD 76 mg/dL (7-18)
[2022-09-23] MEDS: ACETYLCYSTEINE 20% SOLN 800 MG/4 ML VIAL NEB SCH ×3 (07:37→23:46)
[2022-09-23] MEDS: HEPARIN SODIUM, PORCINE 5000 UNITS/1 ML VIAL IV SCH ×2 (09:23→17:47)
[2022-09-23 10:03] LABS: BASOPHILS % (AUTO) 0.1 % (0.0-2.0); EOSINOPHILS # (AUTO) 0.1 K/uL (0.0-0.7); EOSINOPHILS % (AUTO) 0.6 % (0.0-6.0); HEMATOCRIT 31 % (39-51); HEMOGLOBIN 9.7 g/dL (13.5-17.5); LYMPHOCYTES # (AUTO) 0.6 K/uL (0.8-4.8); LYMPHOCYTES % (AUTO) 4.2 % (20.0-44.0); MEAN CORPUSCULAR HEMOGLOBIN 26 PG (26.0-33.0); MEAN CORPUSCULAR HGB CONC 31 g/dl (31.0-36.0); MEAN CORPUSCULAR VOLUME 84 fL (80-96); MONOCYTES # (AUTO) 1.4 K/uL (0.1-1.30); MONOCYTES % (AUTO) 9.7 % (2.0-12.0); NEUTROPHILS # (AUTO) 12.4 K/uL (1.8-8.9); NEUTROPHILS % (AUTO) 85.4 % (43.0-81.0); PLATELET COUNT (AUTO) 399 K/uL (150-450); RED BLOOD CELL COUNT(AUTO) 3.72 MIL/uL (4.5-6.0); RED CELL DISTRIBUTION WIDTH 19.6 % (11.5-15.0); WHITE BLOOD COUNT (AUTO) 14.6 K/uL (4.3-11.0)
[2022-09-23] MEDS: VANCOMYCIN POST DIALYSIS 500MG IV PRN ×2 (11:29)
[2022-09-23] MEDS: IV NS 0.9% 250 ML IV PRN (19:35)
[2022-09-23] MEDS: NOREPINEPHRINE 8 MG in IV NS 0.9% 250ML IV PRN (19:40)
[2022-09-24] VITALS (46 sets, daily range): BP systolic 97–154; BP diastolic 58–85; TEMP 97–98.1; O2SAT 91–100
[2022-09-24] MEDS: IPRATROPIUM NEB FS 0.5 MG/2.5 ML AMPUL.NEB NEB SCH ×4 (02:06→19:50)
[2022-09-24 05:05] LABS: CALCIUM, SERUM 9.4 mg/dL (8.5-10.1); CARBON DIOXIDE 22 mmol/L (21-32); CHLORIDE 105 mmol/L (98-107); CREATININE 4.1 mg/dL (0.6-1.3); GLUCOSE 206 mg/dL (74-106); POTASSIUM 3.7 mmol/L (3.5-5.1); SODIUM SERUM 141 mmol/L (136-145); UREA NITROGEN, BLOOD 68 mg/dL (7-18)
[2022-09-24] MEDS: PIPERACILLIN /TAZOBACTAM 2.25 G in IV D5W 50 ML IV SCH ×3 (05:19→20:12)
[2022-09-24] MEDS: ACETYLCYSTEINE 20% SOLN 800 MG/4 ML VIAL NEB SCH ×3 (08:48→23:39)
[2022-09-24] MEDS: HEPARIN SODIUM, PORCINE 5000 UNITS/1 ML VIAL IV SCH ×2 (08:56→17:33)
[2022-09-24] MEDS: VANCOMYCIN POST DIALYSIS 500MG IV PRN ×2 (18:20)
[2022-09-24] MEDS: IV NS 0.9% 250 ML IV PRN (18:27)
[2022-09-25] VITALS (31 sets, daily range): BP systolic 80–165; BP diastolic 46–82; TEMP 97.8–98; O2SAT 93–100
[2022-09-25] MEDS: IPRATROPIUM NEB FS 0.5 MG/2.5 ML AMPUL.NEB NEB SCH ×4 (01:12→19:57)
[2022-09-25 03:07] LABS: HEPATITIS B SURFACE AB Non Reactive (.)
[2022-09-25] MEDS: PIPERACILLIN /TAZOBACTAM 2.25 G in IV D5W 50 ML IV SCH ×3 (04:03→20:36)
[2022-09-25 05:07] LABS: CALCIUM, SERUM 9.1 mg/dL (8.5-10.1); CARBON DIOXIDE 25 mmol/L (21-32); CHLORIDE 105 mmol/L (98-107); CREATININE 3.8 mg/dL (0.6-1.3); GLUCOSE 179 mg/dL (74-106); POTASSIUM 4.1 mmol/L (3.5-5.1); SODIUM SERUM 142 mmol/L (136-145); UREA NITROGEN, BLOOD 56 mg/dL (7-18)
[2022-09-25] MEDS: ACETYLCYSTEINE 20% SOLN 800 MG/4 ML VIAL NEB SCH ×2 (08:12→13:41)
[2022-09-25] MEDS: HEPARIN SODIUM, PORCINE 5000 UNITS/1 ML VIAL IV SCH ×2 (08:22→17:10)
[2022-09-25] MEDS: NOREPINEPHRINE 8 MG in IV NS 0.9% 250ML IV PRN (15:06)
[2022-09-25] MEDS: IV NS 0.9% 250 ML IV PRN (21:13)
[2022-09-26] VITALS (42 sets, daily range): BP systolic 83–121; BP diastolic 50–93; TEMP 97.6–98; O2SAT 91–100
[2022-09-26] MEDS: IPRATROPIUM NEB FS 0.5 MG/2.5 ML AMPUL.NEB NEB SCH ×4 (00:25→19:40)
[2022-09-26] MEDS: ACETYLCYSTEINE 20% SOLN 800 MG/4 ML VIAL NEB SCH ×4 (00:26→23:23)
[2022-09-26] MEDS: PIPERACILLIN /TAZOBACTAM 2.25 G in IV D5W 50 ML IV SCH ×3 (04:28→21:16)
[2022-09-26 04:36] LABS: BASOPHILS % (AUTO) 0.5 % (0.0-2.0); EOSINOPHILS # (AUTO) 0.4 K/uL (0.0-0.7); EOSINOPHILS % (AUTO) 3.9 % (0.0-6.0); HEMATOCRIT 33 % (39-51); HEMOGLOBIN 10.4 g/dL (13.5-17.5); LYMPHOCYTES # (AUTO) 0.9 K/uL (0.8-4.8); LYMPHOCYTES % (AUTO) 8.9 % (20.0-44.0); MEAN CORPUSCULAR HEMOGLOBIN 26 PG (26.0-33.0); MEAN CORPUSCULAR HGB CONC 31 g/dl (31.0-36.0); MEAN CORPUSCULAR VOLUME 84 fL (80-96); MONOCYTES # (AUTO) 1.2 K/uL (0.1-1.30); MONOCYTES % (AUTO) 11.4 % (2.0-12.0); NEUTROPHILS % (AUTO) 75.3 % (43.0-81.0); PLATELET COUNT (AUTO) 353 K/uL (150-450); RED BLOOD CELL COUNT(AUTO) 3.96 MIL/uL (4.5-6.0); RED CELL DISTRIBUTION WIDTH 18.9 % (11.5-15.0); WHITE BLOOD COUNT (AUTO) 10.6 K/uL (4.3-11.0)
[2022-09-26 05:04] LABS: CALCIUM, SERUM 9.2 mg/dL (8.5-10.1); CARBON DIOXIDE 23 mmol/L (21-32); CHLORIDE 104 mmol/L (98-107); CREATININE 3.9 mg/dL (0.6-1.3); GLUCOSE 178 mg/dL (74-106); POTASSIUM 3.9 mmol/L (3.5-5.1); SODIUM SERUM 142 mmol/L (136-145); UREA NITROGEN, BLOOD 59 mg/dL (7-18)
[2022-09-26 05:46] LABS: BAND % (MANUAL) 1 % (0.0-5.0); EOSINOPHILS % (MANUAL) 6 % (0-4); LYMPHOCYTES % (MANUAL) 6 % (16-48); MONOCYTES % (MANUAL) 10 % (0-11.0); MYELOCYTES % 2 % (0-0); NEUTROPHILS % (MANUAL) 75 (42-76); PLATELET ESTIMATE ADEQUATE
[2022-09-26] MEDS: HEPARIN SODIUM, PORCINE 5000 UNITS/1 ML VIAL IV SCH ×2 (09:14→16:55)
[2022-09-26] MEDS: VANCOMYCIN POST DIALYSIS 500MG IV PRN ×2 (14:37)
[2022-09-27] VITALS (23 sets, daily range): BP systolic 85–122; BP diastolic 51–88; TEMP 98–98.2; O2SAT 92–99
[2022-09-27] MEDS: IPRATROPIUM NEB FS 0.5 MG/2.5 ML AMPUL.NEB NEB SCH ×4 (01:20→19:39)
[2022-09-27] MEDS: IV NS 0.9% 250 ML IV PRN (02:19)
[2022-09-27 05:14] LABS: CALCIUM, SERUM 8.9 mg/dL (8.5-10.1); CARBON DIOXIDE 23 mmol/L (21-32); CHLORIDE 104 mmol/L (98-107); CREATININE 3.9 mg/dL (0.6-1.3); GLUCOSE 173 mg/dL (74-106); POTASSIUM 3.7 mmol/L (3.5-5.1); SODIUM SERUM 141 mmol/L (136-145); UREA NITROGEN, BLOOD 51 mg/dL (7-18)
[2022-09-27] MEDS: PIPERACILLIN /TAZOBACTAM 2.25 G in IV D5W 50 ML IV SCH ×3 (05:57→21:24)
[2022-09-27] MEDS: ACETYLCYSTEINE 20% SOLN 800 MG/4 ML VIAL NEB SCH ×2 (07:35→14:37)
[2022-09-27] MEDS: HEPARIN SODIUM, PORCINE 5000 UNITS/1 ML VIAL IV SCH ×2 (08:08→16:31)
[2022-09-27] MEDS: VANCOMYCIN POST DIALYSIS 500MG IV PRN ×2 (12:40)
[2022-09-27] MEDS: ACETAMINOPHEN 325 MG TABLET PO PRN (20:50)
[2022-09-28] VITALS (14 sets, daily range): BP systolic 93–109; BP diastolic 49–69; TEMP 97.8–98.7; O2SAT 92–99
[2022-09-28] MEDS: ACETYLCYSTEINE 20% SOLN 800 MG/4 ML VIAL NEB SCH ×4 (00:27→23:51)
[2022-09-28] MEDS: IPRATROPIUM NEB FS 0.5 MG/2.5 ML AMPUL.NEB NEB SCH ×4 (01:03→19:35)
[2022-09-28] MEDS: IV NS 0.9% 250 ML IV PRN (02:47)
[2022-09-28] MEDS: PIPERACILLIN /TAZOBACTAM 2.25 G in IV D5W 50 ML IV SCH ×3 (04:35→21:32)
[2022-09-28 06:01] LABS: BASOPHILS % (AUTO) 0.6 % (0.0-2.0); EOSINOPHILS # (AUTO) 0.3 K/uL (0.0-0.7); HEMATOCRIT 32 % (39-51); HEMOGLOBIN 10.1 g/dL (13.5-17.5); LYMPHOCYTES # (AUTO) 0.9 K/uL (0.8-4.8); LYMPHOCYTES % (AUTO) 10.3 % (20.0-44.0); MEAN CORPUSCULAR HEMOGLOBIN 26 PG (26.0-33.0); MEAN CORPUSCULAR HGB CONC 31 g/dl (31.0-36.0); MEAN CORPUSCULAR VOLUME 84 fL (80-96); MONOCYTES # (AUTO) 0.8 K/uL (0.1-1.30); NEUTROPHILS # (AUTO) 6.3 K/uL (1.8-8.9); NEUTROPHILS % (AUTO) 75.1 % (43.0-81.0); PLATELET COUNT (AUTO) 244 K/uL (150-450); RED BLOOD CELL COUNT(AUTO) 3.86 MIL/uL (4.5-6.0); RED CELL DISTRIBUTION WIDTH 19.5 % (11.5-15.0); WHITE BLOOD COUNT (AUTO) 8.4 K/uL (4.3-11.0)
[2022-09-28 06:18] LABS: CALCIUM, SERUM 9.1 mg/dL (8.5-10.1); CARBON DIOXIDE 25 mmol/L (21-32); CHLORIDE 106 mmol/L (98-107); CREATININE 3.8 mg/dL (0.6-1.3); GLUCOSE 215 mg/dL (74-106); POTASSIUM 3.7 mmol/L (3.5-5.1); SODIUM SERUM 141 mmol/L (136-145); UREA NITROGEN, BLOOD 44 mg/dL (7-18)
[2022-09-28] MEDS: ACETAMINOPHEN 325 MG TABLET PO PRN (17:03)
[2022-09-29] VITALS (14 sets, daily range): BP systolic 90–139; BP diastolic 48–79; TEMP 97.2–99.4; O2SAT 90–100
[2022-09-29] MEDS: IPRATROPIUM NEB FS 0.5 MG/2.5 ML AMPUL.NEB NEB SCH ×5 (02:05→20:20)
[2022-09-29] MEDS: PIPERACILLIN /TAZOBACTAM 2.25 G in IV D5W 50 ML IV SCH ×3 (05:54→20:03)
[2022-09-29 06:10] LABS: CALCIUM, SERUM 9.1 mg/dL (8.5-10.1); CARBON DIOXIDE 24 mmol/L (21-32); CHLORIDE 104 mmol/L (98-107); CREATININE 4.1 mg/dL (0.6-1.3); GLUCOSE 187 mg/dL (74-106); POTASSIUM 3.7 mmol/L (3.5-5.1); SODIUM SERUM 141 mmol/L (136-145); UREA NITROGEN, BLOOD 55 mg/dL (7-18)
[2022-09-29] MEDS: ACETYLCYSTEINE 20% SOLN 800 MG/4 ML VIAL NEB SCH ×2 (07:50→15:25)
[2022-09-29] MEDS: ACETAMINOPHEN 325 MG TABLET PO PRN (12:25)
[2022-09-29] MEDS: HYDROCODONE/APAP 5/325MG TABLET PO PRN (16:37)
[2022-09-30] VITALS (16 sets, daily range): BP systolic 95–141; BP diastolic 50–74; TEMP 97.5–98.2; O2SAT 92–100
[2022-09-30] MEDS: ACETYLCYSTEINE 20% SOLN 800 MG/4 ML VIAL NEB SCH ×4 (00:04→23:28)
[2022-09-30] MEDS: IPRATROPIUM NEB FS 0.5 MG/2.5 ML AMPUL.NEB NEB SCH ×4 (01:50→20:28)
[2022-09-30] MEDS: PIPERACILLIN /TAZOBACTAM 2.25 G in IV D5W 50 ML IV SCH ×2 (04:01→14:41)
[2022-09-30 06:20] LABS: CALCIUM, SERUM 8.8 mg/dL (8.5-10.1); CARBON DIOXIDE 23 mmol/L (21-32); CHLORIDE 106 mmol/L (98-107); GLUCOSE 179 mg/dL (74-106); POTASSIUM 3.8 mmol/L (3.5-5.1); SODIUM SERUM 142 mmol/L (136-145); UREA NITROGEN, BLOOD 52 mg/dL (7-18)
[2022-09-30] MEDS: ALBUMIN 25% 25 GM in PREMIX 1 EA IV PRN (12:55)
[2022-09-30 18:51] LABS: INR 1.08 (0.91-1.10); PROTHROMBIN TIME 11.3 SECS (9.2-11.1)
[2022-09-30] MEDS: HYDROCODONE/APAP 5/325MG TABLET PO PRN (20:26)
[2022-10-01] VITALS (12 sets, daily range): BP systolic 107–136; BP diastolic 66–92; TEMP 98–98.5; O2SAT 90–99
[2022-10-01] MEDS: IPRATROPIUM NEB FS 0.5 MG/2.5 ML AMPUL.NEB NEB SCH ×4 (01:30→20:19)
[2022-10-01] MEDS: HYDROCODONE/APAP 5/325MG TABLET PO PRN (04:15)
[2022-10-01] MEDS: ACETYLCYSTEINE 20% SOLN 800 MG/4 ML VIAL NEB SCH ×3 (07:54→23:30)
[2022-10-01] MEDS ORDERED: IOHEXOL 50 ML IV ONE (10:30)
[2022-10-01] MEDS ORDERED: LIDOCAINE HCL/MPF 1% 30 ML VIAL IJ ONE ×2 (10:30→15:34)
[2022-10-01] MEDS ORDERED: HEPARIN SODIUM, PORCINE 1,000 UNIT/ML VIAL ONE (10:30)
[2022-10-01] MEDS ORDERED: LORATADINE 10 MG TABLET PO PRN (14:00)
[2022-10-01] MEDS ORDERED: DAKINS QUARTER STRENGTH (0.125%) 480 ML BOTTLE TOP SCH (14:00)
[2022-10-01] MEDS ORDERED: DEXTROSE 50%-WATER 50 ML DISP.SYRIN IV PRN (14:00)
[2022-10-01] MEDS ORDERED: MAGNESIUM HYDROXIDE 30 ML UDC PO PRN (14:00)
[2022-10-01] MEDS ORDERED: ALBUTEROL FS 2.5 MG/3 ML VIAL.NEB NEB PRN (14:00)
[2022-10-01] MEDS ORDERED: HOME MED MISCELLANEOUS XX SCH (14:00)
[2022-10-01] MEDS ORDERED: BISACODYL SUPP (10 MG) 10 MG/SUPP.RECT SUPP.RECT RC PRN (14:00)
[2022-10-01] MEDS ORDERED: NA PHOS,M-B/NA PHOS,DI-BA 1 EA ENEMA RC PRN (14:00)
[2022-10-01] MEDS: FERROUS SULFATE (325 MG) 325 MG/TAB TABLET PO SCH (14:00)
[2022-10-01] MEDS ORDERED: NITROGLYCERIN 0.4 MG/TAB BOTTLE SL SCH (14:00)
[2022-10-01] MEDS ORDERED: FENTANYL PF 100MCG/2ML AMPUL ONE (14:53)
[2022-10-01] MEDS ORDERED: MIDAZOLAM HCL 2 MG/2ML VIAL ONE (15:29)
[2022-10-01] MEDS: ARGININE/GLUTAMINE/CALCIUM BMB 1 EACH POWD.PACK PO SCH (17:00)
[2022-10-01] MEDS: GABAPENTIN 300 MG CAPSULE PO SCH ×2 (17:00→18:02)
[2022-10-01] MEDS: REPAGLINIDE 2 MG TABLET PO SCH ×2 (17:30→18:02)
[2022-10-01] MEDS: PROSOURCE / PROSTAT (PYXIS) 30 ML UDC PO SCH (17:54)
[2022-10-01] MEDS: BLOOD SUGAR DIAGNOSTIC 1 EACH STRIP IN SCH ×2 (17:54→21:42)
[2022-10-01] MEDS ORDERED: IPRATROPIUM NEB FS 0.5 MG/2.5 ML AMPUL.NEB NEB SCH (19:30)
[2022-10-01] MEDS: ALBUTEROL FS 2.5 MG/0.5 ML VIAL.NEB NEB SCH (20:19)
[2022-10-01] MEDS: BUDESONIDE RESPULE INH 0.5 MG/2 ML AMPUL.NEB IH SCH (20:19)
[2022-10-01] MEDS: INSULIN GLARGINE, 100 UNIT/ML CARTRIDGE SQ SCH (21:46)
[2022-10-01] MEDS: ATORVASTATIN 40 MG TABLET PO SCH (21:51)
[2022-10-01] MEDS: ISOSORBIDE MONONITRATE (30MG) 30 MG TAB.SR.24H PO SCH (22:00)
[2022-10-02] VITALS (8 sets, daily range): BP systolic 102–132; BP diastolic 55–75; TEMP 97.7–98; O2SAT 92–99
[2022-10-02] MEDS: ALBUTEROL FS 2.5 MG/0.5 ML VIAL.NEB NEB SCH ×4 (01:30→20:16)
[2022-10-02] MEDS: IPRATROPIUM NEB FS 0.5 MG/2.5 ML AMPUL.NEB NEB SCH ×4 (01:30→20:16)
[2022-10-02 07:07] LABS: HEPATITIS B CORE AB, IgM Negative (Negative); HEPATITIS B SURFACE AB Non Reactive (.)
[2022-10-02] MEDS: BLOOD SUGAR DIAGNOSTIC 1 EACH STRIP IN SCH ×5 (07:30→22:00)
[2022-10-02] MEDS: REPAGLINIDE 2 MG TABLET PO SCH ×3 (08:25→17:14)
[2022-10-02] MEDS: MULTIVITAMINS,THERAGRAN 1 UDTAB TABLET PO SCH (08:25)
[2022-10-02] MEDS: ACETYLCYSTEINE 20% SOLN 800 MG/4 ML VIAL NEB SCH ×3 (08:25→23:30)
[2022-10-02] MEDS: TAMSULOSIN 0.4 MG CAP.SR.24H PO SCH (08:25)
[2022-10-02] MEDS: GABAPENTIN 300 MG CAPSULE PO SCH ×3 (08:25→17:14)
[2022-10-02] MEDS: ASCORBIC ACID 500 MG TABLET PO SCH (08:25)
[2022-10-02] MEDS: BUDESONIDE RESPULE INH 0.5 MG/2 ML AMPUL.NEB IH SCH ×2 (08:25→20:16)
[2022-10-02] MEDS: APIXABAN 5 MG TABLET PO SCH ×2 (08:26→17:18)
[2022-10-02] MEDS ORDERED: COLLAGENASE 30 GM TUBE TP SCH (09:00)
[2022-10-02] MEDS: ARGININE/GLUTAMINE/CALCIUM BMB 1 EACH POWD.PACK PO SCH ×2 (10:46→18:22)
[2022-10-02] MEDS: PROSOURCE / PROSTAT (PYXIS) 30 ML UDC PO SCH ×2 (10:46→17:20)
[2022-10-02] MEDS: INSULIN REGULAR, HUMAN 100 UNIT/ML 3 ML VIAL SQ PRN ×3 (11:11→22:05)
[2022-10-02] MEDS: EMPAGLIFLOZIN 25 MG TABLET PO SCH (11:39)
[2022-10-02] MEDS: HYDROCODONE/APAP 5/325MG TABLET PO PRN ×2 (13:16→18:14)
[2022-10-02] MEDS: GLUCERNA SHAKE 237 ML CAN PO SCH (17:19)
[2022-10-02] MEDS: INSULIN GLARGINE, 100 UNIT/ML CARTRIDGE SQ SCH (22:00)
[2022-10-02] MEDS: ISOSORBIDE MONONITRATE (30MG) 30 MG TAB.SR.24H PO SCH (22:00)
[2022-10-02] MEDS: ATORVASTATIN 40 MG TABLET PO SCH (22:00)
[2022-10-03] VITALS (14 sets, daily range): BP systolic 98–144; BP diastolic 55–72; TEMP 97.2–98.7; O2SAT 88–99
[2022-10-03] MEDS: IPRATROPIUM NEB FS 0.5 MG/2.5 ML AMPUL.NEB NEB SCH ×4 (01:30→19:44)
[2022-10-03] MEDS: ALBUTEROL FS 2.5 MG/0.5 ML VIAL.NEB NEB SCH ×4 (05:13→19:44)
[2022-10-03] MEDS: REPAGLINIDE 2 MG TABLET PO SCH ×3 (07:23→16:42)
[2022-10-03] MEDS: BLOOD SUGAR DIAGNOSTIC 1 EACH STRIP IN SCH ×4 (07:30→21:34)
[2022-10-03] MEDS: BUDESONIDE RESPULE INH 0.5 MG/2 ML AMPUL.NEB IH SCH ×2 (07:52→19:44)
[2022-10-03] MEDS: ACETYLCYSTEINE 20% SOLN 800 MG/4 ML VIAL NEB SCH ×3 (07:52→23:30)
[2022-10-03] MEDS: GLUCERNA SHAKE 237 ML CAN PO SCH ×3 (08:06→17:07)
[2022-10-03] MEDS: GABAPENTIN 300 MG CAPSULE PO SCH ×3 (08:14→16:42)
[2022-10-03] MEDS: MULTIVITAMINS,THERAGRAN 1 UDTAB TABLET PO SCH (08:14)
[2022-10-03] MEDS: ASCORBIC ACID 500 MG TABLET PO SCH (08:14)
[2022-10-03] MEDS: EMPAGLIFLOZIN 25 MG TABLET PO SCH (08:14)
[2022-10-03] MEDS: TAMSULOSIN 0.4 MG CAP.SR.24H PO SCH (08:14)
[2022-10-03] MEDS: PROSOURCE / PROSTAT (PYXIS) 30 ML UDC PO SCH ×2 (08:18→16:24)
[2022-10-03] MEDS: APIXABAN 5 MG TABLET PO SCH ×2 (08:19→16:43)
[2022-10-03] MEDS: INSULIN REGULAR, HUMAN 100 UNIT/ML 3 ML VIAL SQ PRN ×3 (08:20→16:59)
[2022-10-03] MEDS: ARGININE/GLUTAMINE/CALCIUM BMB 1 EACH POWD.PACK PO SCH ×2 (09:38→16:24)
[2022-10-03] MEDS: FERROUS SULFATE (325 MG) 325 MG/TAB TABLET PO SCH (13:15)
[2022-10-03] MEDS: ALBUMIN 25% 25 GM in PREMIX 1 EA IV PRN (13:59)
[2022-10-03] MEDS: ISOSORBIDE MONONITRATE (30MG) 30 MG TAB.SR.24H PO SCH (21:34)
[2022-10-03] MEDS: ATORVASTATIN 40 MG TABLET PO SCH (21:35)
[2022-10-03] MEDS: INSULIN GLARGINE, 100 UNIT/ML CARTRIDGE SQ SCH (21:35)
[2022-10-04] VITALS (8 sets, daily range): BP systolic 97–145; BP diastolic 55–62; TEMP 97.6–208.9; O2SAT 94–99
[2022-10-04] MEDS: IPRATROPIUM NEB FS 0.5 MG/2.5 ML AMPUL.NEB NEB SCH ×4 (01:20→20:04)
[2022-10-04] MEDS: ALBUTEROL FS 2.5 MG/0.5 ML VIAL.NEB NEB SCH ×4 (01:20→20:04)
[2022-10-04] MEDS: BUDESONIDE RESPULE INH 0.5 MG/2 ML AMPUL.NEB IH SCH ×2 (07:26→20:04)
[2022-10-04] MEDS: ACETYLCYSTEINE 20% SOLN 800 MG/4 ML VIAL NEB SCH ×3 (07:28→22:54)
[2022-10-04] MEDS: REPAGLINIDE 2 MG TABLET PO SCH ×3 (08:10→17:44)
[2022-10-04] MEDS: BLOOD SUGAR DIAGNOSTIC 1 EACH STRIP IN SCH ×4 (08:10→22:00)
[2022-10-04] MEDS: ASCORBIC ACID 500 MG TABLET PO SCH (08:11)
[2022-10-04] MEDS: EMPAGLIFLOZIN 25 MG TABLET PO SCH (08:12)
[2022-10-04] MEDS: MULTIVITAMINS,THERAGRAN 1 UDTAB TABLET PO SCH (08:12)
[2022-10-04] MEDS: GABAPENTIN 300 MG CAPSULE PO SCH ×3 (08:12→17:45)
[2022-10-04] MEDS: APIXABAN 5 MG TABLET PO SCH ×2 (08:13→17:47)
[2022-10-04] MEDS: GLUCERNA SHAKE 237 ML CAN PO SCH ×3 (08:13→17:48)
[2022-10-04] MEDS: INSULIN REGULAR, HUMAN 100 UNIT/ML 3 ML VIAL SQ PRN ×2 (08:14→17:47)
[2022-10-04] MEDS: ARGININE/GLUTAMINE/CALCIUM BMB 1 EACH POWD.PACK PO SCH ×2 (08:16→17:48)
[2022-10-04] MEDS: PROSOURCE / PROSTAT (PYXIS) 30 ML UDC PO SCH ×2 (08:16→17:48)
[2022-10-04] MEDS: TAMSULOSIN 0.4 MG CAP.SR.24H PO SCH (08:17)
[2022-10-04] MEDS: INSULIN GLARGINE, 100 UNIT/ML CARTRIDGE SQ SCH (22:00)
[2022-10-04] MEDS: ATORVASTATIN 40 MG TABLET PO SCH (22:00)
[2022-10-04] MEDS: ISOSORBIDE MONONITRATE (30MG) 30 MG TAB.SR.24H PO SCH (22:00)
[2022-10-05] VITALS (7 sets, daily range): BP systolic 96–141; BP diastolic 45–81; TEMP 97.5–208.9; O2SAT 96–99
[2022-10-05] MEDS: IPRATROPIUM NEB FS 0.5 MG/2.5 ML AMPUL.NEB NEB SCH ×5 (01:13→20:16)
[2022-10-05] MEDS: ALBUTEROL FS 2.5 MG/0.5 ML VIAL.NEB NEB SCH ×5 (01:13→20:16)
[2022-10-05] MEDS: ACETYLCYSTEINE 20% SOLN 800 MG/4 ML VIAL NEB SCH ×3 (02:05→15:30)
[2022-10-05 06:46] LABS: BASOPHILS # (AUTO) 0.1 K/uL (0.0-0.2); BASOPHILS % (AUTO) 0.9 % (0.0-2.0); EOSINOPHILS # (AUTO) 0.3 K/uL (0.0-0.7); EOSINOPHILS % (AUTO) 4.9 % (0.0-6.0); HEMATOCRIT 31 % (39-51); HEMOGLOBIN 9.5 g/dL (13.5-17.5); LYMPHOCYTES # (AUTO) 0.9 K/uL (0.8-4.8); LYMPHOCYTES % (AUTO) 12.6 % (20.0-44.0); MEAN CORPUSCULAR HEMOGLOBIN 26 PG (26.0-33.0); MEAN CORPUSCULAR HGB CONC 31 g/dl (31.0-36.0); MEAN CORPUSCULAR VOLUME 86 fL (80-96); MONOCYTES # (AUTO) 0.8 K/uL (0.1-1.30); MONOCYTES % (AUTO) 11.1 % (2.0-12.0); NEUTROPHILS % (AUTO) 70.5 % (43.0-81.0); PLATELET COUNT (AUTO) 233 K/uL (150-450); WHITE BLOOD COUNT (AUTO) 7.1 K/uL (4.3-11.0)
[2022-10-05] MEDS: BUDESONIDE RESPULE INH 0.5 MG/2 ML AMPUL.NEB IH SCH ×3 (07:30→20:16)
[2022-10-05 07:32] LABS: CALCIUM, SERUM 8.7 mg/dL (8.5-10.1); CARBON DIOXIDE 27 mmol/L (21-32); CHLORIDE 109 mmol/L (98-107); GLUCOSE 105 mg/dL (74-106); POTASSIUM 3.8 mmol/L (3.5-5.1); SODIUM SERUM 143 mmol/L (136-145); UREA NITROGEN, BLOOD 51 mg/dL (7-18)
[2022-10-05 07:42] LABS: ALANINE AMINOTRANSFERASE 10 U/L (12-78); ALBUMIN 2.3 g/dL (3.4-5.0); ALKALINE PHOSPHATASE 88 U/L (46-116); ASPARTATE AMINOTRANSFERASE 9 U/L (15-37); BILIRUBIN,TOTAL 0.3 mg/dL (0.2-1.0); TOTAL PROTEIN, SERUM 6.2 g/dL (6.4-8.2)
[2022-10-05] MEDS: BLOOD SUGAR DIAGNOSTIC 1 EACH STRIP IN SCH ×4 (07:54→22:21)
[2022-10-05] MEDS: REPAGLINIDE 2 MG TABLET PO SCH ×3 (07:55→17:54)
[2022-10-05] MEDS: GLUCERNA SHAKE 237 ML CAN PO SCH ×3 (07:55→17:07)
[2022-10-05 07:58] LABS: MAGNESIUM 2.1 mg/dL (1.8-2.4); PHOSPHORUS 3.8 mg/dL (2.5-4.9)
[2022-10-05] MEDS: PROSOURCE / PROSTAT (PYXIS) 30 ML UDC PO SCH ×2 (08:43→17:38)
[2022-10-05] MEDS: TAMSULOSIN 0.4 MG CAP.SR.24H PO SCH (09:20)
[2022-10-05] MEDS: ASCORBIC ACID 500 MG TABLET PO SCH (09:20)
[2022-10-05] MEDS: MULTIVITAMINS,THERAGRAN 1 UDTAB TABLET PO SCH (09:20)
[2022-10-05] MEDS: ARGININE/GLUTAMINE/CALCIUM BMB 1 EACH POWD.PACK PO SCH ×2 (09:21→17:38)
[2022-10-05] MEDS: APIXABAN 5 MG TABLET PO SCH ×2 (09:25→17:53)
[2022-10-05] MEDS: EMPAGLIFLOZIN 25 MG TABLET PO SCH (09:29)
[2022-10-05] MEDS: GABAPENTIN 300 MG CAPSULE PO SCH ×3 (09:29→17:54)
[2022-10-05] MEDS: FERROUS SULFATE (325 MG) 325 MG/TAB TABLET PO SCH (13:36)
[2022-10-05] MEDS: ALBUMIN 25% 25 GM in PREMIX 1 EA IV PRN (17:07)
[2022-10-05] MEDS: ATORVASTATIN 40 MG TABLET PO SCH (22:11)
[2022-10-05] MEDS: ISOSORBIDE MONONITRATE (30MG) 30 MG TAB.SR.24H PO SCH (22:11)
[2022-10-05] MEDS: INSULIN REGULAR, HUMAN 100 UNIT/ML 3 ML VIAL SQ PRN (22:21)
[2022-10-05] MEDS: INSULIN GLARGINE, 100 UNIT/ML CARTRIDGE SQ SCH (22:28)
[2022-10-06] VITALS: BP 138/79; TEMP 98.1; O2SAT 97
[2022-10-06] MEDS: IPRATROPIUM NEB FS 0.5 MG/2.5 ML AMPUL.NEB NEB SCH ×4 (01:30→19:30)
[2022-10-06] MEDS: ALBUTEROL FS 2.5 MG/0.5 ML VIAL.NEB NEB SCH ×4 (01:30→19:30)
[2022-10-06 04:00] VITALS: BP 118/78; TEMP 97.5; O2SAT 95
[2022-10-06] MEDS: BUDESONIDE RESPULE INH 0.5 MG/2 ML AMPUL.NEB IH SCH ×2 (07:30→19:30)
[2022-10-06] MEDS: ACETYLCYSTEINE 20% SOLN 800 MG/4 ML VIAL NEB SCH ×3 (07:35→23:22)
[2022-10-06] MEDS: BLOOD SUGAR DIAGNOSTIC 1 EACH STRIP IN SCH ×4 (07:58→21:15)
[2022-10-06] MEDS: INSULIN REGULAR, HUMAN 100 UNIT/ML 3 ML VIAL SQ PRN ×2 (07:59→11:51)
[2022-10-06 08:00] VITALS: BP 102/75; TEMP 97.7; O2SAT 98
[2022-10-06] MEDS: TAMSULOSIN 0.4 MG CAP.SR.24H PO SCH (08:56)
[2022-10-06] MEDS: REPAGLINIDE 2 MG TABLET PO SCH ×3 (08:56→17:16)
[2022-10-06] MEDS: MULTIVITAMINS,THERAGRAN 1 UDTAB TABLET PO SCH (08:56)
[2022-10-06] MEDS: GABAPENTIN 300 MG CAPSULE PO SCH ×3 (08:56→16:40)
[2022-10-06] MEDS: EMPAGLIFLOZIN 25 MG TABLET PO SCH (08:56)
[2022-10-06] MEDS: ASCORBIC ACID 500 MG TABLET PO SCH (08:56)
[2022-10-06] MEDS: PROSOURCE / PROSTAT (PYXIS) 30 ML UDC PO SCH ×2 (08:57→16:38)
[2022-10-06] MEDS: GLUCERNA SHAKE 237 ML CAN PO SCH ×3 (08:57→17:00)
[2022-10-06] MEDS: ARGININE/GLUTAMINE/CALCIUM BMB 1 EACH POWD.PACK PO SCH ×2 (08:57→16:41)
[2022-10-06] MEDS: APIXABAN 5 MG TABLET PO SCH ×2 (08:58→16:40)
[2022-10-06 09:45] LABS: ALANINE AMINOTRANSFERASE 9 U/L (12-78); ALBUMIN 2.5 g/dL (3.4-5.0); ALKALINE PHOSPHATASE 91 U/L (46-116); ASPARTATE AMINOTRANSFERASE 7 U/L (15-37); BILIRUBIN,TOTAL 0.4 mg/dL (0.2-1.0); CALCIUM, SERUM 8.7 mg/dL (8.5-10.1); CARBON DIOXIDE 27 mmol/L (21-32); CHLORIDE 112 mmol/L (98-107); CREATININE 2.6 mg/dL (0.6-1.3); GLUCOSE 112 mg/dL (74-106); POTASSIUM 4.2 mmol/L (3.5-5.1); SODIUM SERUM 144 mmol/L (136-145); TOTAL PROTEIN, SERUM 6.1 g/dL (6.4-8.2); UREA NITROGEN, BLOOD 37 mg/dL (7-18)
[2022-10-06 16:00] VITALS: BP 106/66; TEMP 98; O2SAT 94
[2022-10-06 20:00] VITALS: BP 140/90; TEMP 98.6; O2SAT 95
[2022-10-06] MEDS: ATORVASTATIN 40 MG TABLET PO SCH (21:09)
[2022-10-06] MEDS: ISOSORBIDE MONONITRATE (30MG) 30 MG TAB.SR.24H PO SCH (21:09)
[2022-10-06] MEDS: INSULIN GLARGINE, 100 UNIT/ML CARTRIDGE SQ SCH (21:16)
[2022-10-06 23:19] VITALS: O2SAT 95
[2022-10-07] VITALS (8 sets, daily range): BP systolic 97–136; BP diastolic 60–80; TEMP 97.5–98.4; O2SAT 94–98
[2022-10-07] MEDS: ALBUTEROL FS 2.5 MG/0.5 ML VIAL.NEB NEB SCH ×4 (01:30→19:29)
[2022-10-07] MEDS: IPRATROPIUM NEB FS 0.5 MG/2.5 ML AMPUL.NEB NEB SCH ×4 (01:30→19:29)
[2022-10-07] MEDS: INSULIN REGULAR, HUMAN 100 UNIT/ML 3 ML VIAL SQ PRN ×5 (06:42→23:36)
[2022-10-07] MEDS: BLOOD SUGAR DIAGNOSTIC 1 EACH STRIP IN SCH ×4 (06:42→22:11)
[2022-10-07 07:13] LABS: ALANINE AMINOTRANSFERASE 7 U/L (12-78); ALBUMIN 2.7 g/dL (3.4-5.0); ALKALINE PHOSPHATASE 105 U/L (46-116); ASPARTATE AMINOTRANSFERASE 10 U/L (15-37); BILIRUBIN,TOTAL 0.4 mg/dL (0.2-1.0); CALCIUM, SERUM 8.9 mg/dL (8.5-10.1); CARBON DIOXIDE 25 mmol/L (21-32); CHLORIDE 111 mmol/L (98-107); CREATININE 2.8 mg/dL (0.6-1.3); GLUCOSE 128 mg/dL (74-106); POTASSIUM 4.3 mmol/L (3.5-5.1); SODIUM SERUM 143 mmol/L (136-145); TOTAL PROTEIN, SERUM 6.7 g/dL (6.4-8.2); UREA NITROGEN, BLOOD 42 mg/dL (7-18)
[2022-10-07] MEDS: PROSOURCE / PROSTAT (PYXIS) 30 ML UDC PO SCH ×2 (08:00→17:00)
[2022-10-07] MEDS: BUDESONIDE RESPULE INH 0.5 MG/2 ML AMPUL.NEB IH SCH ×2 (08:06→19:28)
[2022-10-07] MEDS: ACETYLCYSTEINE 20% SOLN 800 MG/4 ML VIAL NEB SCH ×3 (08:07→22:34)
[2022-10-07] MEDS: EMPAGLIFLOZIN 25 MG TABLET PO SCH (08:45)
[2022-10-07] MEDS: ASCORBIC ACID 500 MG TABLET PO SCH (08:45)
[2022-10-07] MEDS: REPAGLINIDE 2 MG TABLET PO SCH ×3 (08:45→17:13)
[2022-10-07] MEDS: MULTIVITAMINS,THERAGRAN 1 UDTAB TABLET PO SCH (08:45)
[2022-10-07] MEDS: GABAPENTIN 300 MG CAPSULE PO SCH ×3 (08:45→16:16)
[2022-10-07] MEDS: TAMSULOSIN 0.4 MG CAP.SR.24H PO SCH (08:45)
[2022-10-07] MEDS: APIXABAN 5 MG TABLET PO SCH ×2 (08:47→16:17)
[2022-10-07] MEDS: GLUCERNA SHAKE 237 ML CAN PO SCH ×3 (08:51→17:00)
[2022-10-07] MEDS: ARGININE/GLUTAMINE/CALCIUM BMB 1 EACH POWD.PACK PO SCH ×2 (08:51→17:00)
[2022-10-07] MEDS: FERROUS SULFATE (325 MG) 325 MG/TAB TABLET PO SCH (14:48)
[2022-10-07] MEDS: INSULIN GLARGINE, 100 UNIT/ML CARTRIDGE SQ SCH (22:00)
[2022-10-07] MEDS: ISOSORBIDE MONONITRATE (30MG) 30 MG TAB.SR.24H PO SCH (22:00)
[2022-10-07] MEDS: ATORVASTATIN 40 MG TABLET PO SCH (22:49)
[2022-10-08] VITALS (7 sets, daily range): BP systolic 97–109; BP diastolic 51–65; TEMP 98.1–99.5; O2SAT 90–95
[2022-10-08] MEDS: ALBUTEROL FS 2.5 MG/0.5 ML VIAL.NEB NEB SCH ×3 (00:36→13:30)
[2022-10-08] MEDS: IPRATROPIUM NEB FS 0.5 MG/2.5 ML AMPUL.NEB NEB SCH ×3 (00:36→13:30)
[2022-10-08 07:01] LABS: CALCIUM, SERUM 8.9 mg/dL (8.5-10.1); CARBON DIOXIDE 26 mmol/L (21-32); CHLORIDE 113 mmol/L (98-107); CREATININE 2.5 mg/dL (0.6-1.3); GLUCOSE 142 mg/dL (74-106); POTASSIUM 4.7 mmol/L (3.5-5.1); SODIUM SERUM 144 mmol/L (136-145); UREA NITROGEN, BLOOD 34 mg/dL (7-18)
[2022-10-08 07:11] LABS: ALANINE AMINOTRANSFERASE 15 U/L (12-78); ALBUMIN 2.7 g/dL (3.4-5.0); ALKALINE PHOSPHATASE 100 U/L (46-116); ASPARTATE AMINOTRANSFERASE 14 U/L (15-37); BILIRUBIN,TOTAL 0.3 mg/dL (0.2-1.0)
[2022-10-08] MEDS: REPAGLINIDE 2 MG TABLET PO SCH ×4 (07:30→16:55)
[2022-10-08] MEDS: ACETYLCYSTEINE 20% SOLN 800 MG/4 ML VIAL NEB SCH ×2 (07:52→15:05)
[2022-10-08] MEDS: BUDESONIDE RESPULE INH 0.5 MG/2 ML AMPUL.NEB IH SCH (07:52)
[2022-10-08] MEDS: GLUCERNA SHAKE 237 ML CAN PO SCH ×3 (08:00→16:55)
[2022-10-08] MEDS: PROSOURCE / PROSTAT (PYXIS) 30 ML UDC PO SCH ×3 (08:00→16:55)
[2022-10-08] MEDS: EMPAGLIFLOZIN 25 MG TABLET PO SCH ×2 (09:00→09:14)
[2022-10-08] MEDS: MULTIVITAMINS,THERAGRAN 1 UDTAB TABLET PO SCH ×2 (09:00→09:15)
[2022-10-08] MEDS: APIXABAN 5 MG TABLET PO SCH ×3 (09:00→16:54)
[2022-10-08] MEDS: TAMSULOSIN 0.4 MG CAP.SR.24H PO SCH ×2 (09:00→09:15)
[2022-10-08] MEDS: ARGININE/GLUTAMINE/CALCIUM BMB 1 EACH POWD.PACK PO SCH ×3 (09:00→16:55)
[2022-10-08] MEDS: GABAPENTIN 300 MG CAPSULE PO SCH ×4 (09:00→16:55)
[2022-10-08] MEDS: ASCORBIC ACID 500 MG TABLET PO SCH ×2 (09:00→09:15)
[2022-10-08] MEDS: BLOOD SUGAR DIAGNOSTIC 1 EACH STRIP IN SCH ×3 (09:14→16:55)
[2022-10-08] MEDS: HYDROCODONE/APAP 5/325MG TABLET PO PRN (18:05)
== END 2022-10-08 18:19 | DRG 853 ==
LOC: ER 15:54 → TELE1 20:22 → ICU 09-21 19:42 → TELE1 09-27 17:18
PROVIDERS: ADMIT Internal Medicine; ATTEND Internal Medicine
PROC: 02H633Z Insertion of Infusion Device into Right Atrium, Percutaneous Approach (ICD-10-PCS; principal; 2022-09-21)
PROC: B548ZZA Ultrasonography of Superior Vena Cava, Guidance (ICD-10-PCS; 2022-09-21)
PROC: 5A1D70Z Performance of Urinary Filtration, Intermittent, Less than 6 Hours Per Day (ICD-10-PCS; 2022-09-21)
PROC: 0JBQ0ZZ Excision of Right Foot Subcutaneous Tissue and Fascia, Open Approach (ICD-10-PCS; 2022-09-26)
PROC: 0KBW0ZZ Excision of Left Foot Muscle, Open Approach (ICD-10-PCS; 2022-09-26)
PROC: 0JBR0ZZ Excision of Left Foot Subcutaneous Tissue and Fascia, Open Approach (ICD-10-PCS; 2022-09-26)
PROC: 0JH63XZ Insertion of Tunneled Vascular Access Device into Chest Subcutaneous Tissue and Fascia, Percutaneous Approach (ICD-10-PCS; 2022-10-01)
PROC: 02HV33Z Insertion of Infusion Device into Superior Vena Cava, Percutaneous Approach (ICD-10-PCS; 2022-10-01)
PROC: B548ZZA Ultrasonography of Superior Vena Cava, Guidance (ICD-10-PCS; 2022-10-01)
DX: A41.9 Sepsis, unspecified organism (principal); G93.41 Metabolic encephalopathy; I21.4 Non-ST elevation (NSTEMI) myocardial infarction; I50.23 Acute on chronic systolic (congestive) heart failure; J96.21 Acute and chronic respiratory failure with hypoxia; N17.0 Acute kidney failure with tubular necrosis; R65.21 Severe sepsis with septic shock; J15.6 Pneumonia due to other Gram-negative bacteria; I13.0 Hypertensive heart and chronic kidney disease with heart failure and stage 1 through stage 4 chronic kidney disease, or unspecified chronic kidney disease; J90 Pleural effusion, not elsewhere classified; K76.6 Portal hypertension; J98.11 Atelectasis; L03.115 Cellulitis of right lower limb; L03.116 Cellulitis of left lower limb; L97.518 Non-pressure chronic ulcer of other part of right foot with other specified severity; I87.313 Chronic venous hypertension (idiopathic) with ulcer of bilateral lower extremity; L97.829 Non-pressure chronic ulcer of other part of left lower leg with unspecified severity; L97.819 Non-pressure chronic ulcer of other part of right lower leg with unspecified severity; N39.0 Urinary tract infection, site not specified; L97.428 Non-pressure chronic ulcer of left heel and midfoot with other specified severity; I42.9 Cardiomyopathy, unspecified; J44.0 Chronic obstructive pulmonary disease with (acute) lower respiratory infection; N18.9 Chronic kidney disease, unspecified; E11.22 Type 2 diabetes mellitus with diabetic chronic kidney disease; D63.8 Anemia in other chronic diseases classified elsewhere; E11.42 Type 2 diabetes mellitus with diabetic polyneuropathy; R74.01 Elevation of levels of liver transaminase levels; E11.51 Type 2 diabetes mellitus with diabetic peripheral angiopathy without gangrene; E11.621 Type 2 diabetes mellitus with foot ulcer; T17.990A Other foreign object in respiratory tract, part unspecified in causing asphyxiation, initial encounter; E66.9 Obesity, unspecified; Z68.32 Body mass index [BMI] 32.0-32.9, adult; D69.6 Thrombocytopenia, unspecified; Z87.891 Personal history of nicotine dependence; I77.810 Thoracic aortic ectasia; L89.156 Pressure-induced deep tissue damage of sacral region; N28.1 Cyst of kidney, acquired; Z66 Do not resuscitate; Z59.00 Homelessness unspecified
CPT/HCPCS: 36415; 36600; 71045-TC; 71250-TC; 73630-TC; 76770-TC; 80048-TC; 80053-TC; 80076-TC; 80202-TC; 81001; 82570-TC; 82803-TC; 82962-TC; 83605-TC; 83735-TC; 83880; 84100-TC; 84300-TC; 84443-TC; 84484-TC; 85025-TC; 85610-TC; 85652-TC; 85730-TC; 86705; 86706; 86803; 86850-TC; 87040-TC; 87081-TC; 87340; 90935-TC; 92526; 92611-TC; 94799-TC; 97110-TC; 97112-TC; 97530-TC; 99082-TC; A4216; A4223; A6253; A6403; C1750; G0378; J0690; J1644; J1815; J1940; J2250; J2370; J2543; J2704; J3010; J3370; J3490; J7030; J7040; J7050; J7060; P9047; Q9967

== ENCOUNTER 2022-10-15 19:53 | Inpatient (IN) | payer BC ==
[~2022-10-15] VITALS: Ht 190.5 cm; Wt 106.6 kg
[~2022-10-15 19:53] MED LIST changes: +ACET-2605 PO; +ACET-868 PO; +ALBU8.5H8 IH; +AMIN887L7 PO; +APIX5TAB PO; +ARGI1POW13 PO; +ASCO-340 PO; +ATOR80TA PO; +BISA10SU11 RC; +BUME1TAB9 PO; +CALC-494 PO; +COLL30OI TP; +EMPA10TA PO; +FERR325T28 PO; +FLUT1DIS3 IH; +GABA300C PO; +HYDR-3980 PO; +INSU100I30 SQ; +INSU100V3 SQ; +ISOS30TA86 PO; +LORA10TA7 PO; +MAGN400O6 PO; +MULT-213 PO; +NA P133E RC; +NITR0.4T48 SL; +NORM210S TP; +ONDA4TAB5 PO; +POVI3780 TP; +REPA1TAB7 PO; +SODI473S8 TP; +TAMS-12 PO; +THERAHONEY TP; +TIOT18CA3 IH; +XEROFORM TP
[2022-10-15] MEDS ORDERED: predniSONE 20 MG TABLET ONE (20:07)
[2022-10-15] MEDS ORDERED: ALBUTEROL FS 2.5 MG/3 ML VIAL.NEB ONE (20:17)
[2022-10-15] MEDS ORDERED: IPRATROPIUM NEB FS 0.5 MG/2.5 ML AMPUL.NEB ONE (20:17)
[2022-10-15 20:18] VITALS: O2SAT 92
[2022-10-15 20:23] LABS: BASOPHILS % (AUTO) 0.3 % (0.0-2.0); EOSINOPHILS # (AUTO) 0.2 K/uL (0.0-0.7); EOSINOPHILS % (AUTO) 3.9 % (0.0-6.0); HEMATOCRIT 29 % (39-51); HEMOGLOBIN 8.9 g/dL (13.5-17.5); LYMPHOCYTES # (AUTO) 0.7 K/uL (0.8-4.8); MEAN CORPUSCULAR HEMOGLOBIN 27 PG (26.0-33.0); MEAN CORPUSCULAR HGB CONC 31 g/dl (31.0-36.0); MEAN CORPUSCULAR VOLUME 89 fL (80-96); MONOCYTES # (AUTO) 0.6 K/uL (0.1-1.30); NEUTROPHILS # (AUTO) 3.8 K/uL (1.8-8.9); NEUTROPHILS % (AUTO) 71.8 % (43.0-81.0); PLATELET COUNT (AUTO) 126 K/uL (150-450); RED BLOOD CELL COUNT(AUTO) 3.29 MIL/uL (4.5-6.0); RED CELL DISTRIBUTION WIDTH 21.5 % (11.5-15.0); WHITE BLOOD COUNT (AUTO) 5.3 K/uL (4.3-11.0)
[2022-10-15 20:28] VITALS: O2SAT 99
[2022-10-15 20:30] VITALS: O2SAT 99
[2022-10-15] MEDS ORDERED: IPRATROPIUM NEB FS 0.5 MG/2.5 ML AMPUL.NEB NEB ONE (20:30)
[2022-10-15] MEDS ORDERED: predniSONE 20 MG TABLET PO ONE (20:30)
[2022-10-15] MEDS ORDERED: ALBUTEROL FS 2.5 MG/3 ML VIAL.NEB CONTNEB ONE (20:30)
[2022-10-15 20:31] LABS: CALCIUM, SERUM 8.8 mg/dL (8.5-10.1); CARBON DIOXIDE 27 mmol/L (21-32); CHLORIDE 102 mmol/L (98-107); CREATININE 4.3 mg/dL (0.6-1.3); GLUCOSE 145 mg/dL (74-106); POTASSIUM 4.7 mmol/L (3.5-5.1); SODIUM SERUM 140 mmol/L (136-145); UREA NITROGEN, BLOOD 52 mg/dL (7-18)
[2022-10-15 20:37] LABS: ALANINE AMINOTRANSFERASE 14 U/L (12-78); ALBUMIN 2.7 g/dL (3.4-5.0); ALKALINE PHOSPHATASE 130 U/L (46-116); ASPARTATE AMINOTRANSFERASE 16 U/L (15-37); BILIRUBIN,DIRECT 0.2 mg/dL (0.0-0.2); BILIRUBIN,TOTAL 0.4 mg/dL (0.2-1.0); TOTAL PROTEIN, SERUM 7.1 g/dL (6.4-8.2)
[2022-10-15 20:40] VITALS: O2SAT 93; O2SAT 99
[2022-10-15 20:40] LABS: LACTIC ACID 1.5 mmol/L (0.4-2.0)
[2022-10-15 20:50] LABS: INR 1.15 (0.91-1.10); PARTIAL THROMBOPLASTIN TIME 47.6 SEC (24.3-34.3)
[2022-10-15] MEDS ORDERED: methylPREDNISolone SOD SUCC 125 MG/2ML VIAL IV ONE (21:00)
[2022-10-15 21:29] LABS: APPEARANCE,URINE CLEAR (CLEAR); BILIRUBIN,URINE NEGATIVE (NEGATIVE); BLOOD, URINE NEGATIVE Ery/uL (NEGATIVE); COLOR,URINE YELLOW (YELLOW); KETONES,URINE TRACE mg/dL (NEGATIVE); LEUKOCYTE ESTERASE ,URINE NEGATIVE (NEGATIVE); NITRITE, URINE NEGATIVE (NEGATIVE); PH,URINE 5.5 (5.0-8.0); PROTEIN,URINE 2+ mg/dl (NEGATIVE); UGLUCOSE 1+ mg/dL (NEGATIVE); UROBILINOGEN,URINE 0.2 EU/dL (0.2)
[2022-10-15 21:43] VITALS: O2SAT 92
[2022-10-15 22:13] LABS: ADD URINE CULTURE NO; BACTERIA,URINE RARE /HPF (None Seen); MUCUS,URINE Few /LPF (None Seen); RBC,URINE 0-2 /HPF (0-2); SQUAMOUS EPITHELIAL CELL,UR 0-2 /HPF (None Seen); URINE AMORPHOUS URATE Few /HPF (None Seen); WBC,URINE 0-2 /HPF (0-3)
[2022-10-15] MEDS ORDERED: ZOLPIDEM TARTRATE 5 MG TABLET PO PRN (22:30)
[2022-10-15] MEDS ORDERED: Z GUARD REMEDY 4 OZ OINT TP PRN (22:30)
[2022-10-15] MEDS ORDERED: MAG HYDROX/AL HYDROX/SIMETH 30 ML UDC PO PRN (22:30)
[2022-10-15] MEDS ORDERED: ACETAMINOPHEN 325 MG TABLET PO PRN (22:30)
[2022-10-15] MEDS ORDERED: MAGNESIUM HYDROXIDE 30 ML UDC PO PRN (22:30)
[2022-10-15] MEDS ORDERED: ONDANSETRON HCL/PF 4 MG/2 ML VIAL IVP PRN (22:30)
[2022-10-15] MEDS: VANCOMYCIN 2 GM in IV D5W 500 ML IV ONE (23:45)
[2022-10-16] MEDS ORDERED: ZOSYN IVPB 2.25 G in IV D5W 50ml IV SCH ×2
[2022-10-16] MEDS ORDERED: VANCOMYCIN 1 GM /D5W 250 ML PB IV ONE (00:28)
[2022-10-16] MEDS ORDERED: PIPERCILLIN/TAZOBACTAM 2.25GM/D5W 50MLPB IV ONE (00:28)
[2022-10-16] MEDS: VANCOMYCIN 2 GM in IV D5W 500 ML IV ONE (00:32)
[2022-10-16] MEDS: IPRATROPIUM NEB FS 0.5 MG/2.5 ML AMPUL.NEB NEB SCH ×5 (01:00→16:03)
[2022-10-16 01:11] VITALS: BP 98/67; TEMP 99.2; O2SAT 98
[2022-10-16 04:00] VITALS: BP 102/70; TEMP 98.6; O2SAT 95
[2022-10-16] MEDS: ALBUTEROL FS 2.5 MG/0.5 ML VIAL.NEB NEB SCH ×4 (05:00→16:03)
[2022-10-16 05:56] LABS: BASOPHILS % (AUTO) 0.1 % (0.0-2.0); EOSINOPHILS % (AUTO) 0.3 % (0.0-6.0); HEMATOCRIT 29 % (39-51); HEMOGLOBIN 8.6 g/dL (13.5-17.5); LYMPHOCYTES # (AUTO) 0.3 K/uL (0.8-4.8); LYMPHOCYTES % (AUTO) 5.4 % (20.0-44.0); MEAN CORPUSCULAR HEMOGLOBIN 27 PG (26.0-33.0); MEAN CORPUSCULAR HGB CONC 30 g/dl (31.0-36.0); MEAN CORPUSCULAR VOLUME 91 fL (80-96); MONOCYTES # (AUTO) 0.1 K/uL (0.1-1.30); MONOCYTES % (AUTO) 1.9 % (2.0-12.0); NEUTROPHILS # (AUTO) 4.6 K/uL (1.8-8.9); NEUTROPHILS % (AUTO) 92.3 % (43.0-81.0); PLATELET COUNT (AUTO) 121 K/uL (150-450); RED BLOOD CELL COUNT(AUTO) 3.15 MIL/uL (4.5-6.0); RED CELL DISTRIBUTION WIDTH 21.6 % (11.5-15.0)
[2022-10-16 06:18] LABS: CALCIUM, SERUM 8.7 mg/dL (8.5-10.1); CARBON DIOXIDE 21 mmol/L (21-32); CHLORIDE 101 mmol/L (98-107); CREATININE 4.4 mg/dL (0.6-1.3); GLUCOSE 225 mg/dL (74-106); MAGNESIUM 2.5 mg/dL (1.8-2.4); PHOSPHORUS 5.7 mg/dL (2.5-4.9); POTASSIUM 4.5 mmol/L (3.5-5.1); SODIUM SERUM 137 mmol/L (136-145); UREA NITROGEN, BLOOD 57 mg/dL (7-18)
[2022-10-16 06:26] LABS: ABG BASE EXCESS 1.7 mmol/L; ABG OXYGEN SATURATION 91.2 % (92.0-98.5); ABG PCO2 46.9 mmHg (35.0-45.0); ABG PH 7.381 (7.350-7.450); ABG PO2 61.9 mmHg (75.0-100.0); ABG TOTAL HEMOGLOBIN 10.1 G/dL (13.5-18.0); COHb 0.5 % (0.5-1.5); MetHb 0.1 % (0.0-1.5); O2Hb 90.7 % (94.0-97.0); SITE, ABG Right Radial; VENT MODE, BG 6L SMIPLE MASK
[2022-10-16] MEDS ORDERED: LORAZEPAM INJ 2 MG/ML VIAL IV PRN ×3 (07:30→12:00)
[2022-10-16] MEDS ORDERED: PANTOPRAZOLE 40 MG TABLET.DR PO SCH (07:30)
[2022-10-16] MEDS ORDERED: VANCOMYCIN POST DIALYSIS 500MG IV PRN ×2 (07:30)
[2022-10-16 08:00] VITALS: BP 139/84; TEMP 98.6; O2SAT 94
[2022-10-16] MEDS ORDERED: VANCOMYCIN 1 GM in IV D5W 250ml IV ONE (08:00)
[2022-10-16] MEDS ORDERED: LORA10TA7 PO (08:21)
[2022-10-16] MEDS: PIPERACILLIN /TAZOBACTAM 2.25 G in IV D5W 50 ML IV SCH ×2 (09:26→09:31)
[2022-10-16] MEDS: methylPREDNISolone SOD SUCC 40 MG/ML VIAL IV SCH ×2 (09:31→12:54)
[2022-10-16 12:00] VITALS: BP 127/75; TEMP 97.8; O2SAT 95
[2022-10-16 13:43] VITALS: O2SAT 92
[2022-10-16] MEDS ORDERED: METOPROLOL TARTRATE 25 MG TABLET PO SCH (14:00)
[2022-10-16 16:00] VITALS: BP 113/76; TEMP 97.8; O2SAT 95
[2022-10-16] MEDS ORDERED: HEPARIN SODIUM, PORCINE 5000 UNITS/1 ML VIAL SQ SCH (17:00)
[2022-10-16] MEDS ORDERED: SODIUM BICARBONATE SYR 50 MEQ/50 ML DISP.SYRIN IV ONE (18:16)
== END 2022-10-16 18:17 ==
LOC: ER 19:54 → TELE1 23:19
PROVIDERS: ADMIT Student in an Organized Health Care Education/Training Program; ATTEND Internal Medicine
PROC: 05H533Z Insertion of Infusion Device into Right Subclavian Vein, Percutaneous Approach (ICD-10-PCS; principal; 2022-10-16)
PROC: B546ZZA Ultrasonography of Right Subclavian Vein, Guidance (ICD-10-PCS; 2022-10-16)
DX: I13.2 Hypertensive heart and chronic kidney disease with heart failure and with stage 5 chronic kidney disease, or end stage renal disease (principal); I50.23 Acute on chronic systolic (congestive) heart failure; I21.A1 Myocardial infarction type 2; J96.01 Acute respiratory failure with hypoxia; N18.6 End stage renal disease; J44.0 Chronic obstructive pulmonary disease with (acute) lower respiratory infection; J44.1 Chronic obstructive pulmonary disease with (acute) exacerbation; E66.2 Morbid (severe) obesity with alveolar hypoventilation; L97.428 Non-pressure chronic ulcer of left heel and midfoot with other specified severity; L97.418 Non-pressure chronic ulcer of right heel and midfoot with other specified severity; M86.8X7 Other osteomyelitis, ankle and foot; I42.9 Cardiomyopathy, unspecified; F03.90 Unspecified dementia, unspecified severity, without behavioral disturbance, psychotic disturbance, mood disturbance, and anxiety; D63.1 Anemia in chronic kidney disease; D69.6 Thrombocytopenia, unspecified; E11.42 Type 2 diabetes mellitus with diabetic polyneuropathy; E11.51 Type 2 diabetes mellitus with diabetic peripheral angiopathy without gangrene; Z66 Do not resuscitate; Z79.01 Long term (current) use of anticoagulants; Z79.4 Long term (current) use of insulin; Z79.84 Long term (current) use of oral hypoglycemic drugs; Z99.2 Dependence on renal dialysis; E11.22 Type 2 diabetes mellitus with diabetic chronic kidney disease; E11.621 Type 2 diabetes mellitus with foot ulcer; Z68.29 Body mass index [BMI] 29.0-29.9, adult; E11.69 Type 2 diabetes mellitus with other specified complication; N25.0 Renal osteodystrophy; Z20.822 Contact with and (suspected) exposure to COVID-19; Z87.891 Personal history of nicotine dependence; I25.10 Atherosclerotic heart disease of native coronary artery without angina pectoris; I43 Cardiomyopathy in diseases classified elsewhere
CPT/HCPCS: 36410; 36415; 36600; 71045-TC; 80048-TC; 80076-TC; 81001; 82803-TC; 82962-TC; 83605-TC; 83735-TC; 84100-TC; 84484-TC; 85025-TC; 85730-TC; 87040-TC; 87081-TC; 92526; 92611-TC; A4223; C9803; G0378; J1644; J2060; J2543; J2920; J2930; J3370; J3490; J7050; J7060